=== PATIENT | female | born 1955 | race Caucasian/White ===

== ENCOUNTER 2024-07-04 18:56 | Inpatient (IN) | payer OTHER, SELFPAY ==
[2024-07-04] VITALS (28 sets, daily range): BP systolic 80–143; BP diastolic 37–119; BMI 30.8; BMI 32.3
[2024-07-04 15:43] LABS: Glucose - Point of Care 117 mg/dl (70-99)
--- NOTE | 2024-07-04 16:01 | ED.GENMED ---
Addendum entered and electronically signed by Fredis Lofton MD 07/04/24 17:57:
Patient came back from CT scan as the fluids were going patient is hypotensive again with systolic in the 90s. Given the renal failure we will discontinue the second liter of fluid. Will give that a rate of 150 with the bicarb. Will order
pressors as needed to keep maps above 65. Updated hospitalist of these changes.
Original Note:
History of Present Illness
General
Chief Complaint: Change in Mental Status
Time Seen by Provider: 07/04/24 15:49
History of Present Illness
History of Present Illness:
Patient is a 69-year-old woman with history of hypertension, hyperlipidemia presenting to the emergency department change in mental status. Per medics patient was found down. Initially reported that she was down for a few days. Patient unable to
provide much history. She states that nothing is bothering her.
Daughter is now at bedside provides all the history. She states that she does have history of TIA, hyperlipidemia. She is able to take care of herself on a usual basis and does live at home by herself. Patient saw her about 6 days ago in her
usual state of health. They did notice that she had been needing more assistance and they were in the works of getting an aide at the house. Daughter then talked to patient and everything was normal. She had coherence and there was nothing
different about her. Patient's daughter then went to visit her today when she found her sitting on the couch upright covered in urine and feces. Daughter did notice that she was slightly confused. Daughter does state that she has history of DENA
when she has been dehydrated but has never needed dialysis.
Past History
Past History
ED Past Medical History: HTN and Other (Stroke)
ED Past Surgical History: Cholecystectomy and Orthopedic
Social History
Tobacco: Non-smoker
Family History
Family History: Other (Reviewed and non-contributory)
Phy Exam
Physical Exam
Physical Exam:
GENERAL: disheveled, covered in feces
HEENT: normocephalic, extraocular movements intact, extremely dry oral mucosa
NECK: normal inspection
RESPIRATORY: no respiratory distress, clear to auscultation bilaterally
CARDIOVASCULAR: regular rate and rhythm
ABDOMEN/: soft, non-distended, diffusely tender to palpation, no rebound or guarding
EXTREMITIES: non-tender, no edema/swelling
NEUROLOGIC: awake and alert oriented x 2, 3 out of 5 strength in upper extremities, 1 out of 5 in bilateral lower extremities
SKIN: warm, significant excoriations under breast and in the groin. No purulent drainage
Sepsis
Sepsis Screening
Sepsis Assessment: Septic Shock
Sepsis Screening: Lactate >2mmol/L and Hypotension
Sepsis Screen
Sepsis Screen: Septic Shock
Date: 07/04/24
Time: 17:45
Course
Orders/Labs/Results
Orders:
Orders
07/04/24 15:40
EKG [Electrocardiogram (*1)] Urgent
Reason for Study: Shortness of Breath
EKG- Treatment ONCE
07/04/24 16:01
CT Abd/pelvis Wo Iv Cont Urgent
Reason For Exam: abdominal pain
CT Head W/o Iv Contrast Urgent
Comment:
Reason For Exam: ams
Lactated Ringers [Lr] 1,000 ml IV BOLUS
07/04/24 16:11
Ammonia Urgent
COVID-19 Antigen Urgent
Source: Nasal Swab
Complete Blood Count/With Diff Urgent
Comprehensive Metabolic Panel Urgent
Creatine Phosphokinase Urgent
Lactic Acid Urgent
NT-proBNP Urgent
UA Reflex to Culture [Urinalysis Reflex To Culture] Urgent
Date Specimen was Collected: 07/04/24
Time Specimen was Collected: 15:40
Urine Microscopic Reflex Cult Urgent
Influenza A+B Rapid Molecular Urgent
YONATAN Source: Nasal Swab
Specimen Description:
Date Specimen was Collected: 07/04/24
Time Specimen was Collected: 15:40
Urine Culture Urgent
YONATAN Source: U
Specimen Description:
Date Specimen was Collected: 07/04/24
Time Specimen was Collected: 15:40
07/04/24 16:29
Wound Culture [Wound/Abscess/Other Culture] Urgent
YONATAN Source: Decubitis Ulcer
Specimen Description:
Date Specimen was Collected: 07/04/24
Time Specimen was Collected: 16:21
07/04/24 16:30
Blood Culture Urgent
YONATAN Source: Blood/Venous
Specimen Description:
07/04/24 16:31
Blood Culture Urgent
YONATAN Source: Blood/Venous
Specimen Description:
Piperacillin/Tazo 4.5 Gram [Zosyn] 4.5 gram in 100 ml IV NOW
07/04/24 16:45
Blood Culture Q30M
YONATAN Source: Blood/Venous
Specimen Description:
07/04/24 17:04
Furosemide [Lasix] 40 mg IV NOW STA
Sodium Bicarbonate 50 meq IV NOW STA
07/04/24 17:15
Blood Culture Q30M
YONATAN Source: Blood/Venous
Specimen Description:
Lactated Ringers [Lr] 1,000 ml IV BOLUS
07/04/24 17:30
Dextrose 5%/Water 1000 ml [D5w] 1,000 ml Sodium Bicarbonate 150 meq IV 150 mls/hr
07/04/24 21:35
Potassium Urgent
Comment: draw 4 hours after furosemide administered
Abnormal Lab Results
07/04/24 07/04/24
15:36 16:11
WBC 24.5 H 10^3/uL
(4.8-10.8)
RDW 15.4 H %
(11.5-14.5)
MPV 11.9 H fL
(7.4-10.4)
Abs Immat Gran (auto) 1.2 H 10^3/uL
(0-0.05)
Absolute Neuts (auto) 19.4 H 10^3/uL
(1.4-6.5)
Absolute Lymphs (auto) 0.9 L 10^3/uL
(1.2-3.4)
Absolute Monos (auto) 2.7 H 10^3/uL
(0.1-0.6)
Immature Gran % 5.1 H %
(0-0.5)
Neutrophils % 79.3 H %
(42.2-75.2)
Lymphocytes % 3.7 L %
(20.5-51.1)
Monocytes % 10.9 H %
(1.7-9.3)
Potassium 5.9 H mmol/L
(3.5-5.1)
Carbon Dioxide 9 L* mmol/L
(22-30)
BUN 167 H* mg/dl
(7-17)
Creatinine 16.0 H* mg/dL
(0.6-1.0)
Glucose 117 H mg/dl
(70-99)
Lactic Acid 3.1 H mmol/L
(0.7-2.0)
Calcium 10.4 H mg/dl
(8.4-10.2)
Total Bilirubin 1.7 H mg/dl
(0.2-1.3)
AST 59 H U/L
(14-36)
ALT 36 H U/L
(0-35)
Alkaline Phosphatase 149 H U/L
(38-126)
Ammonia < 9 L umol/L
(9-30)
Creatine Kinase 954 H U/L
(30-135)
Urine Ketones 1+ A
(Negative)
Ur Occult Blood Reflex 2+ A
(Negative)
Urine Bilirubin 1+ A
(Negative)
Leukocyte Esterase Rfl 2+ A
(Negative)
Urine RBC 7-10 A /HPF
(0-2)
Urine WBC (Reflex) 26-30 A /HPF
(0-5)
Urine Bacteria (Reflex) Many A
(Negative)
Urine Albumin (Reflex) 1+ A
(Neg - Trace)
POC Glucose 117 H mg/dl
(70-99)
07/04/24 16:11
Vital Signs
Initial and Last Documented VS:
Initial Vital Signs
Resp
27
07/04/24 15:35
Last Documented Vital Signs
Temp Pulse Resp BP
98.5 F 85 24 105/46
07/04/24 15:43 07/04/24 17:00 07/04/24 17:00 07/04/24 17:00
MDM/Problems Addressed
Differential Diagnosis Includes:
69-year-old woman presenting to the emergency department change in mental status after she was found down. Vitals are notable for hypotension and exam does show significant excoriations and a woman who is ANO x 2. She is not any focal
neurodeficits. Will workup septic causes such as pneumonia urine electrolyte derangement. Will rule out traumatic injury such as a hemorrhage with CT head. Given the abdominal tenderness will obtain CT abdomen pelvis. At this time the groin
excoriations do not seem consistent with necrotizing soft tissue infection however will check lactate. Will give fluids for the hypotension with low threshold to initiate pressors. Will also give empiric antibiotics.
*Critical Care Note
Total Time (30-74mins, 75-104mins- exclusive of procedures): Not Applicable
Update Note
Update Note:
On reevaluation patient is very fluid responsive. Blood pressure is now 105/46. Her blood work is notable for leukocytosis. She is found to be in acute renal failure. It does appear to be prerenal. Her CO2 is 9. Her lactate is slightly
elevated. Her CK is also elevated. Potassium is slightly elevated. Urine does appear infected.
I did start hyperkalemia protocol. EKG per my interpretation without peaked T waves we will hold off calcium. I did discuss with nephrology who recommended continued fluid resuscitation with additional bolus and then starting bicarb drip at 150.
CT scan of the head per my interpretation with chronic infarcts. Per the official read she does have multiple old infarcts. CT scan of the abdomen without any acute findings.
Discussed with hospitalist who accepted patient to their service
ED Attending Note
-
Portions of this chart may have been created with voice recognition software.� Occasional wrong word or��sound alike� substitutions may have occurred due to the inherent limitations of voice recognition software.
Discharge Plan
Departure
Patient Disposition: Home (Routine Discharge)
Date of Disposition: 07/04/24
Time of Disposition: 17:41
Patient with high blood pressure during this ER visit?: No
Discharge Problem:
Acute renal failure
Prescriptions:
No Action
aspirin 81 mg Tablet,Delayed Release (Dr/Ec)
81 mg PO DAILY
lisinopril-hydrochlorothiazide 20-12.5 mg Tablet
1 tab PO BID
Referrals:
Arsh Gibbons MD [Family Provider] -
Interventions
Interventions:
*Risk Screen - Suicide Last Done: 07/04/24 15:43
*General Assessment Last Done: 07/04/24 15:43
*Neglect/Abuse Screening Last Done: 07/04/24 15:43
ED- Fall Risk Assessment Last Done: 07/04/24 16:25
*ED COVID-19 Vaccine History Last Done: 07/04/24 15:43
ED- Pulmonary Assessment Last Done: 07/04/24 16:25
ED-Psychological Assessment Last Done: 07/04/24 17:00
ED- Neurological Assessment Last Done: 07/04/24 16:25
ED- Cardiac Assessment Last Done: 07/04/24 16:25
ED Swallowing Screen Last Done: 07/04/24 16:25
Discharge Date and Time
Print Language: VIETNAMESE
--- NOTE | 2024-07-04 16:06 | WOUNDNOTE ---
WOUND/SKIN CARE NOTE: Pt identified by name and .
Lower abd and groin
Bilateral medial upper thighs
Under L breast
Buttucks and upper posterior thighs
as above
[2024-07-04 16:20] LABS: Urine Albumin 1+ (Neg - Trace); Urine Bilirubin 1+ (Negative); Urine Character Very Cloudy (Clear); Urine Color Yellow; Urine Glucose Negative (Negative); Urine Ketone 1+ (Negative); Urine Leukocyte 2+ (Negative); Urine Nitrite Negative (Negative); Urine Occult Blood 2+ (Negative); Urine Urobilinogen 1+ (Neg - 1+)
[2024-07-04] MEDS: LR 1000 IV ×2 (16:24→17:40)
[2024-07-04 16:27] LABS: Urine Squamous Cell 0-2 /LPF (Few)
[2024-07-04 16:29] LABS: Urine Bacteria Many (Negative); Urine White Cell 26-30 /HPF (0-5)
[2024-07-04 16:31] LABS: Ammonia < 9 umol/L (9-30)
[2024-07-04 16:34] LABS: ALT (SGPT) 36 U/L (0-35); AST (SGOT) 59 U/L (14-36); Albumin 3.6 g/dl (3.5-5.0); Alkaline Phosphatase 149 U/L (38-126); COVID-19 Antigen Negative (Negative); Calcium 10.4 mg/dl (8.4-10.2); Carbon Dioxide 9 mmol/L (22-30); Chloride 105 mmol/L (98-107); Creatine Phosphokinase 954 U/L (30-135); Glucose 117 mg/dl (70-99); Lactic Acid 3.1 mmol/L (0.7-2.0); Potassium 5.9 mmol/L (3.5-5.1); Sodium 144 mmol/L (135-145); Total Bilirubin 1.7 mg/dl (0.2-1.3)
[2024-07-04 16:40] LABS: NT-proBNP 7420 pg/ml
[2024-07-04 16:48] LABS: Blood Urea Nitrogen 167 mg/dl (7-17); Estimated Creatinine Clearance 4 ml/min; eGFR 2.18
[2024-07-04 17:00] LABS: % Basophils 0.1 % (0-2); % Eosinophils 0.9 % (0-6); % Immature Granulocytes 5.1 % (0-0.5); % Lymphocytes 3.7 % (20.5-51.1); % Monocytes 10.9 % (1.7-9.3); % Neutrophils 79.3 % (42.2-75.2); Absolute Eosinophils 0.2 10^3/uL (0-0.7); Absolute Immature Granulocytes 1.2 10^3/uL (0-0.05); Absolute Lymphocytes 0.9 10^3/uL (1.2-3.4); Absolute Monocytes 2.7 10^3/uL (0.1-0.6); Absolute Neutrophils 19.4 10^3/uL (1.4-6.5); Hematocrit 43.1 % (37.0-47.0); Hemoglobin 14.6 g/dL (12.0-16.0); Mean Corp Hgb Conc. 33.9 g/dL (33.0-37.0); Mean Corpuscular Volume 88.5 fL (81.0-99.0); Mean Platelet Volume 11.9 fL (7.4-10.4); Nucleated Red Blood Cells % 0.1 %; Platelet Count 397 10^3/uL (130-400); Red Blood Cell Count 4.87 10^6/uL (4.20-5.40); Red Cell Dist. Width 15.4 % (11.5-14.5); White Blood Cell Count 24.5 10^3/uL (4.8-10.8)
[2024-07-04] MEDS: LASIX 40 MG IV (17:41)
[2024-07-04] MEDS: SODIUM BICARBONATE 50 MEQ IV ×2 (17:41→23:00)
[2024-07-04] MEDS: ZOSYN 100 IV (17:46)
--- NOTE | 2024-07-04 17:46 | HPS.HSE ---
Family Physician
-
Family Physician: Arsh Gibbons
Chief Complaint
-
Weakness
History of Present Illness
Patient is a 69-year-old female past medical history of hypertension and prior stroke who presents with weakness. Patient herself is unable to provide much additional history. Patient was last seen by her family 6 days ago. Patient's daughter
spoke to patient 2 days ago and she sounded fine on the phone. This morning daughter tried to call her today and patient did not answer. Patient's daughter went to visit her today and found her sitting on the couch covered in urine and feces. It
is unclear how long she had been on the couch. Daughter believes patient has only had a few cans of seltzer since Friday when the daughter delivered the groceries.
Patient's daughter reports patient has had a notable decline since at least May, possibly longer. Family recently contacted [facility] to get her mom additional services in the home.
Medical History
Past Medical History
Past Medical History: Reports Other
Additional Past Medical History:
Right Parietal Lobe Stroke
Essential Hypertension
Past Surgical History: Reports Other
Additional Past Surgical History:
Cholecystectomy
Bilateral Total Knee Replacement
Social History
Tobacco: Non-smoker
Alcohol: None
Living: Alone
Family History
Family History: Other (Mother: Breast Cancer; Father: CVA)
Allergies / Home Medications
Allergies reflects when Allergies were last updated in [facility].
Home Medications with original date entered in [facility]
Allergy/Medication List:
Allergies
Allergy/AdvReac Type Severity Reaction Status Date / Time
No Known Allergies Allergy Verified 07/04/24 16:29
Home Medications
aspirin 81 mg tablet,delayed release 81 mg PO DAILY Blood clot prevention/tx 08/21/22
lisinopril 20 mg-hydrochlorothiazide 12.5 mg tablet 1 tab PO BID 07/04/24
Review of Systems
-
Unable to obtain full review of systems at this time due to: Acuity
Physical Exam
Vital Signs
Vital Signs
Temp Pulse Resp BP
98.5 F 85 24 105/46
07/04/24 15:43 07/04/24 17:00 07/04/24 17:00 07/04/24 17:00
Physical Exam
General: Well Developed and Well Nourished
HEENT: Anicteric and Other (Mucous membranes are very dry)
Respiratory: Clear and Non Labored Respirations
Cardiac: S1/S2 and Regular Rhythm
GI: Soft and Non Tender
Musculoskeletal: No Clubbing and No Cyanosis
Skin: Warm and Dry
Neuro: Awake, Alert, Oriented (Patient correctly states she is at [facility]; She reports the date as May 2024) and Other (Speech is slow but clear; 3/5 Strength Upper Ext; 1/5 Strength Lower Ext)
Psych: Calm
Laboratory Results
-
07/04/24 16:11
Laboratory Results
Lactic Acid 3.1 mmol/L (0.7-2.0) H 07/04/24 16:11
Total Bilirubin 1.7 mg/dl (0.2-1.3) H 07/04/24 16:11
AST 59 U/L (14-36) H 07/04/24 16:11
ALT 36 U/L (0-35) H 07/04/24 16:11
Alkaline Phosphatase 149 U/L (38-126) H 07/04/24 16:11
Data Reviewed
-
CT Scan: Report Reviewed by me
Lab Data: Labs Reviewed by me
Impression/Plan
-
Severe Sepsis secondary to Urinary Tract Infection
Acute Kidney Injury, suspect multi-factorial in setting of sepsis, rhabdomyolysis and poor oral intake
Abnormal LFTs, possible shock liver in setting of sepsis vs rhabdomyolysis vs other
Hyperkalemia
Severe Metabolic Acidosis
Lactic Acidosis
Rhabdomyolysis
-Admit to IMU for close monitoring and potential need for pressors
-Check blood cultures
-Check CXR
-Continue Ceftriaxone for UTI
-Continue IVFs with Bicarb
-Consult Nephrology
Skin Breakdown involving breast, abdomen and groin folds
-Consult Wound Care
Tachy-Boogie Syndrome s/p Permanent Pacemaker
-Stable
Hx Right Parietal Stroke
-Continue aspirin
DVT proph: SC Heparin
Code Status: Full Code
[2024-07-04 18:13] LABS: Urine Sodium 63 mmol/L (30-90)
[2024-07-04 18:27] LABS: Body Fluid for Eosinophils No Eosinophils seen
--- NOTE | 2024-07-04 18:50 | PTCARENOTE ---
attempted R midline without success. unable to thread wire past 6cm x2 attempts, offered to attempt midline placement L side but d/t needs and time constraints (for off going md), ED md to place central line for patient
[2024-07-04] MEDS: SODIUM BICARBONATE 1150 MEQ IV (19:13)
--- NOTE | 2024-07-04 19:57 | EDRN ---
Report given to Deb in ICU
--- NOTE | 2024-07-04 20:06 | W.PN.UPDATE ---
Update Note
Progress Note Update
Attending update
I saw the patient independently
69-year-old woman with past medical history of hypertension and prior stroke who presents with weakness. Patient unable to provide additional history. She was last seen by her family 6 days ago. Patient was found sitting on the couch covered in
urine and feces. It is unclear how long she had been on the couch. Severe skin excoriation on groin folds and under breasts.
Past Medical History
Right Parietal Lobe Stroke
Essential Hypertension
Cholecystectomy
Bilateral Total Knee Replacement
Physical Exam
General: Well Developed
HEENT: Mucous membranes are very dry
Respiratory: Clear and Non Labored Respirations (front exam)
Cardiac: S1/S2 and Regular Rhythm
GI: Soft and Non Tender
Neuro: Awake, Alert, Oriented (Patient correctly states she is at [facility];
She reports the date as May 2024)
(Speech is slow but clear; 3/5 Strength Upper Ext; 1/5 Strength Lower Ext)
Psych: Calm
Skin Red, excoriated skin folds on groin and under breasts
Impression/Plan
1. Severe Sepsis, likely secondary to Urinary Tract Infection but complicated by:
Acute Kidney Injury, (suspect multi-factorial in setting of sepsis),
rhabdomyolysis
poor oral intake
Abnormal LFTs, (possible shock liver in setting of sepsis vs rhabdomyolysis)
Hyperkalemia
Severe Metabolic Acidosis
Lactic Acidosis
Rhabdomyolysis
Plan is to Admit to IMU for close monitoring and potential need for pressors, with IVF ressusitation
blood cultures
CXR
Ceftriaxone (but received zosyn in ED)
IVFs with Bicarb
Consult Nephrology
Please see PA note for full detail about
Skin Breakdown involving breast, abdomen and groin folds
Tachy-Boogie Syndrome s/p Permanent Pacemaker
Hx Right Parietal Stroke
DVT proph: SC Heparin
Code Status: Full Code
--- NOTE | 2024-07-04 20:30 | PTCARENOTE ---
Addendum entered by Deb Garces RN 07/05/24 03:09:
Patient incontinent of large amount of dark watery/liquid diarrhea. Nasal trumpet inserted per rectum, to drainage bag.
Original Note:
Patient received from the ED via stretcher accompanied by RN. Transferred and admitted to ICU bed 3364 as IMU patient. She is awake and alert. PEREIRA. She is oriented to person and place. Forgetful. Speech is slightly slurred and garbled at times. BBS
clear. S1S2 irregular and tachy. BLE edema 1+ with palpable pulses. Perineum, Sacrum, Bilateral medial buttocks, bilateral groin under abdominal fold, under left breast, labia and pubic region all noted to be extremely excoriated with MASD. Skin is
friable with some bleeding noted. Bilateral medial buttocks and sacrum noted with slough, a couple of areas at groin and perineum appear necrotic. Skin care given and zinc oxide applied to areas. Khoury catheter in place patent draining cloudy yellow
urine. Khoury care rendered. Patient turned every 2 hours.
--- NOTE | 2024-07-04 21:45 | PTCARENOTE ---
Noted that patient EKG in the ED was SR. Now appears to be in Afib with RVR with HR 120-140s. EKG performed. ML Arthur notified. Labs drawn. Cardiology consulted. New IV site inserted left wrist #[id number].
[2024-07-04 22:30] LABS: Calcium 9.8 mg/dl (8.4-10.2); Carbon Dioxide 13 mmol/L (22-30); Chloride 103 mmol/L (98-107); Estimated Creatinine Clearance 4 ml/min; Glucose 120 mg/dl (70-99); Magnesium 2.5 mg/dl (1.6-2.3); Potassium 4.8 mmol/L (3.5-5.1); Sodium 143 mmol/L (135-145); eGFR 2.69
[2024-07-04 22:34] LABS: Blood Urea Nitrogen 159 mg/dl (7-17)
[2024-07-04] MEDS: STERILE WATER FOR INJECTION 10 ML IV (23:00)
[2024-07-04] MEDS: ROCEPHIN 1000 MG IV (23:00)
[2024-07-04] MEDS: HEPARIN 25000 UNITS/250 ML IV (23:30)
--- NOTE | 2024-07-04 23:30 | PTCARENOTE ---
Addendum entered by Deb Garces RN 07/05/24 03:08:
one amp of HCO3 also given per order.
Original Note:
PTT noted at 24.6. Heparin gtt started per order. Next PTT at 0600
[2024-07-04 23:51] LABS: Hematocrit 38.2 % (37.0-47.0); Hemoglobin 13.4 g/dL (12.0-16.0); Mean Corp Hgb Conc. 35.1 g/dL (33.0-37.0); Mean Corpuscular Hgb 30.2 pg (27.0-31.0); Mean Corpuscular Volume 86.2 fL (81.0-99.0); Platelet Count 320 10^3/uL (130-400); Red Blood Cell Count 4.43 10^6/uL (4.20-5.40); Red Cell Dist. Width 14.7 % (11.5-14.5)
[2024-07-05] VITALS (55 sets, daily range): BP systolic 63–134; BP diastolic 41–97; BMI 32.3
[2024-07-05] LABS: APTT 24.6 Sec (23.4-35.0)
[2024-07-05] MEDS: LOPRESSOR 2.5 MG IV (01:12)
[2024-07-05 02:41] LABS: Hematocrit 37.2 % (37.0-47.0); Hemoglobin 13.3 g/dL (12.0-16.0)
[2024-07-05 03:09] LABS: Lactic Acid 2.3 mmol/L (0.7-2.0)
[2024-07-05 03:18] LABS: Calcium 8.9 mg/dl (8.4-10.2); Carbon Dioxide 21 mmol/L (22-30); Chloride 103 mmol/L (98-107); Estimated Creatinine Clearance 5 ml/min; Glucose 126 mg/dl (70-99); Magnesium 2.1 mg/dl (1.6-2.3); Potassium 4.1 mmol/L (3.5-5.1); Sodium 145 mmol/L (135-145); eGFR 3.23
[2024-07-05] MEDS: SODIUM BICARBONATE 1150 MEQ IV (03:24)
[2024-07-05 03:28] LABS: Blood Urea Nitrogen 164 mg/dl (7-17)
--- NOTE | 2024-07-05 03:47 | W.PN.UPDATE ---
Update Note
Progress Note Update
-Reported by the nursing staff that the patient`s hr 120-140s, bp 91/55. EKG shows A-fib which is new. Patient was able to answer simple question during exam.On RA, denies SOB or chest pain.
-Cardiology consult placed.
-Levophed ordered earlier in ER, but not started as the bp improved.
-Currently bp is soft will give small dose IV Lopressor 2.5 mg and will re order Levophed if needed for hypotension.
-Heparin drip ordered by admitting team.
[2024-07-05 06:43] LABS: Hematocrit 37.5 % (37.0-47.0); Hemoglobin 13.6 g/dL (12.0-16.0); Mean Corp Hgb Conc. 36.3 g/dL (33.0-37.0); Mean Corpuscular Hgb 30.7 pg (27.0-31.0); Mean Corpuscular Volume 84.7 fL (81.0-99.0); Mean Platelet Volume 12.2 fL (7.4-10.4); Platelet Count 316 10^3/uL (130-400); Red Blood Cell Count 4.43 10^6/uL (4.20-5.40); Red Cell Dist. Width 14.1 % (11.5-14.5); White Blood Cell Count 21.4 10^3/uL (4.8-10.8)
[2024-07-05 06:53] LABS: APTT 43.4 Sec (23.4-35.0)
[2024-07-05 07:18] LABS: ALT (SGPT) 30 U/L (0-35); AST (SGOT) 66 U/L (14-36); Albumin 2.5 g/dl (3.5-5.0); Alkaline Phosphatase 116 U/L (38-126); Calcium 8.9 mg/dl (8.4-10.2); Carbon Dioxide 26 mmol/L (22-30); Chloride 100 mmol/L (98-107); Creatine Phosphokinase 814 U/L (30-135); Estimated Creatinine Clearance 5 ml/min; Glucose 132 mg/dl (70-99); Potassium 3.9 mmol/L (3.5-5.1); Sodium 144 mmol/L (135-145); Total Bilirubin 0.9 mg/dl (0.2-1.3); Total Protein 5.3 g/dl (6.3-8.2); eGFR 3.65
[2024-07-05 07:28] LABS: Blood Urea Nitrogen 163 mg/dl (7-17)
--- NOTE | 2024-07-05 07:34 | PTCARENOTE ---
Report given verbally to RN assuming careSudheer. Questions answered.
--- NOTE | 2024-07-05 07:42 | W.PN.HOSP.TC ---
Today's Communication/Plan
-
see plan
Assessment / Plan
Assessment / Plan
69-year-old woman with past medical history of hypertension and prior stroke who presents with weakness. Patient unable to provide additional history. She was last seen by her family 6 days ago. Patient was found sitting on the couch covered in
urine and feces. It is unclear how long she had been on the couch. Severe skin excoriation on groin folds and under breasts.
Abdomen/Pelvis CT
IMPRESSION:
1). There is no evidence of acute pathology
2). 2 cm right adrenal adenoma
3). Cholecystectomy
4). Multilevel lumbar degenerative disc disease
HEAD CT
IMPRESSION:
There are no acute intracranial abnormalities.
There is old a 3.5 cm cm right parietal white matter infarct
There is old 3 cm right frontal convexity infarct
There is old 3 mm lacunar infarct in the anterior aspect of the right thalamus
There is mild diffuse cortical atrophy with mild nonspecific white matter changes as described above.
CXR
IMPRESSION:
No active cardiopulmonary disease.
Acute Renal Failure
Hyperkalemia
Rhabdomyolysis
-creatinine 16 on admission with BUN 167, K+ 5.9
-case discussed with Nephrology by ER attending
-receiving D5 sodium bicarb @ 150cc/hr with improvement in creatinine down to 10.4 5his morning
-CK has improved from 954 to 814
-continue sodium bicarb
Transaminitis in setting of sepsis/dehydration
-resolved this AM with mildly elevated AST related to muscle
Severe Sepsis
Lactic Acidosis
-flu and covid negative
-lactate resolving, will continue to trend
-continue IV Ceftriaxone
-F/U cultures
Diarrhea
-send C. Diff and norovirus
Skin Breakdown involving breast, abdomen and groin folds
-Consult Wound Care
Tachy-Boogie Syndrome s/p Permanent Pacemaker
Atrial Fibrillation with RVR
-s/p 1 dose IV metop
-patient tachy to 120's - follow up response to small fluid bolus
-cardiology consulted
-IV heparin gtt
Hx Right Parietal Stroke
-Continue aspirin
DVT proph: SC Heparin
Code Status: Full Code
Total Critical Care Time 45 minutes. I was immediately available to the patient and staff. I personally examined, reviewed labs, diagnostic images/reports, interpretations, treatment plans, discussed patient care with other providers and family
or caregivers (if patient is unable to make decisions), entered orders as appropriate and documented the medical record.
Anticipated Discharge: > 48 hours
Subjective/Interval History
-
Date of Service: July 05, 2024
loose stools overnight
denies pain
states she remembers being on her cough but couldn't get up
Objective Data
-
Labs:
Laboratory Results
07/04/24 07/04/24 07/05/24
22:07 23:39 02:26
WBC 23.0 H
Hgb 13.4 13.3
Hct 38.2 37.2
Plt Count 320
APTT 24.6
Sodium 143 145
Potassium 4.8 4.1
Chloride 103 103
Carbon Dioxide 13 L* 21 L
BUN 159 H* 164 H*
Creatinine 13.4 H* 11.5 H*
Glucose 120 H 126 H
Calcium 9.8 8.9
Total Bilirubin
AST
ALT
Alkaline Phosphatase
07/05/24
06:33
WBC 21.4 H
Hgb 13.6
Hct 37.5
Plt Count 316
APTT 43.4 H
Sodium 144
Potassium 3.9
Chloride 100
Carbon Dioxide 26
BUN 163 H*
Creatinine 10.4 H*
Glucose 132 H
Calcium 8.9
Total Bilirubin 0.9
AST 66 H
ALT 30
Alkaline Phosphatase 116
Vital Signs:
Vital Signs
Temp Pulse Resp BP Pulse Ox
98.7 F 113 20 98/53 96
07/05/24 07:02 07/05/24 07:30 07/05/24 07:30 07/05/24 07:30 07/05/24 07:30
I&O
07/04/24 07/05/24 07/06/24
06:59 06:59 06:59
Intake Total 1668.8 / 1668.8
Output Total 1620 / 1620
Balance 48.8 / 48.8
Review of Systems
-
History Source: Patient
All other systems: Reviewed and negative
Physical Exam
-
General: No Apparent Distress
HEENT: PERRLA
Respiratory: Clear to Auscultation; Negative Wheezes
Cardiac: Irregular Rhythm and Tachycardic
GI: Soft and Nontender
Skin: Warm and Dry; Negative Rash
Neuro: Awake, Alert, Oriented and Other (moves all extremities, follows commands, ISAAK, EOMI, no facial asymmetry, bilateral pronator drift? (chronic?); can wiggle toes and following commands )
Psych: Confused
Data Reviewed
-
Diagnostic Radiology: Report Reviewed by me
Labs: Labs Reviewed by me
--- NOTE | 2024-07-05 08:26 | CON.CAR ---
Addendum entered and electronically signed by Jason Severino MD 07/05/24 13:35:
69 yo female with PMH of non-obstructive CAD, HTN, tachy/claire s/p PPM, prior CVA is admitted after being found down at home. She is being treated for septic shock/UTI. Acute renal failure was present on admission. We are consulted for new A fib
with RVR. She does not feel palps. Exam with tachy, irregular rhythm, no murmurs. Cr is over 10. Tele: A fib, avg HR 110s.
New A fib with RVR. Trend rates as she is weaned from levophed. We will eventually add Toprol XL. CHADS2-VASC = 6. Heparin for now for OAC. Eventual transition to eliquis.
Original Note:
Consultation
Consultation Request
Date/Time Consultation Requested: 07/04/2024 22:30
Date/Time Consultation Performed: 07/05/2024 08:30
Requesting Provider: Dr. Arthur
Performing Provider: NELLY Sims for Dr. Severino
Reason for Consultation: New atrial fibrillation with rapid ventricular response
Medical History
-
Chief Complaint: Weakness
History of Present Illness:
Janet Dexter is a 69-year-old female (known to Dr. Womack, her primary research hydraulic engineer), nonobstructive coronary artery disease, hypertension, hyperlipidemia, chronic kidney disease, tachybradycardia syndrome status post pacemaker (Medtronic), and
prior CVA presented with weakness and change in mental status. She was found to be confused by her family. She was covered in urine and feces. She was last seen by her family 5 to 7 days prior to arrival to the emergency department. She was
admitted with sepsis and DENA. Cardiology was consulted for atrial fibrillation with rapid ventricular response. Her remote monitoring is disconnected. She had approximately 2 hours of atrial fibrillation yesterday and current episode has been in
progress and 09:19 today. Bedside Medtronic [facility] performed by me. She is confused and unable to participate in this consultation.
Past Medical History
Past Medical History: Arrhythmias (NSVT), CAD (Nonobstructive), CVA, HTN, Hypercholesterolemia and Renal Failure (CKD3a)
Past Surgical History: Cholecystectomy and Orthopedic
Social History
Tobacco: Non-Smoker
Alcohol: None
Drug: None
Living: Alone
Family History
Family History: Unable to Obtain
Allergies / Home Medications
Allergy/AdvReac Type Severity Reaction Status Date / Time
No Known Allergies Allergy Verified 07/04/24 16:29
�Medication �Instructions �Recorded �Confirmed �Type
aspirin 81 mg tablet,delayed 81 mg PO DAILY Blood clot 08/21/22 07/04/24 History
release prevention/tx
lisinopril 20 1 tab PO BID 07/04/24 07/04/24 History
mg-hydrochlorothiazide 12.5 mg
tablet
Review of Systems
-
Unable to obtain full review of systems at this time due to: Other (Confused)
Physical Exam
Vital Signs
Temp Pulse Resp BP Pulse Ox
98.7 F 113 20 98/53 96
07/05/24 07:02 07/05/24 07:30 07/05/24 07:30 07/05/24 07:30 07/05/24 07:30
Lab Results
07/05/24 06:33
07/05/24 06:33
Dos-K-Bzcfmvdykct Pept 7420 pg/ml 07/04/24 16:11
Physical Exam
General: Well Developed, No Apparent Distress and Comfortable
HEENT: Normocephalic, Anicteric and Moist Mucous Membranes
Respiratory: Clear and Non Labored Respirations
Cardiac: S1/S2, Irregular Rhythm and Peripheral Edema
Breast: Deferred by me
GI: Soft, Non Tender, Non Distended and Normal Bowel Sounds
Rectal: Deferred by Provider
Genito-urinary: No Costovertebral Tender
Musculoskeletal: No Clubbing and No Cyanosis
Skin: Warm and Dry
Neuro: Awake and Alert (Spontaneously opening eyes)
Hematologic/Lymphatic: No Lymphadenopathy
Psych: Calm and Confused
Impression / Plan
-
IMPRESSION/PLAN: 69F with nonobstructive coronary artery disease, hypertension, hype per lipidemia, chronic kidney disease, tachybradycardia syndrome status post pacemaker (Medtronic), and prior CVA presented with weakness and change in mental
status. She was admitted with sepsis and DENA. Cardiology was consulted for atrial fibrillation with rapid ventricular response.
Primary Bag Bundler: Dr. Womack
Septic shock, in the setting of UTI
-Hypotension, leukocytosis, lactic acidosis, DENA
-Lactic acidosis slowly improving, CK improving
-C Diff and Norovirus negative (she has diarrhea)
-Blood cultures are pending
DENA on CKD3a
-Improving, nephrology following
Atrial fibrillation with rapid ventricular response
-Rates are fast, limited given hypotension,
-Oral Anticoagulation: On heparin drip, eventual transition to apixaban 5 mg twice daily, aspirin can be discontinued
-[id number]: score at least 6 (HTN, prior Stroke/TIA, Vascular disease, age 65-74, female gender)
Hyperkalemia, in the setting of DENA, nephrology follow
Tachybradycardia syndrome status post Medtronic PPM (10/2022), bedside CareLink performed
Hypertension, now hypotensive
-Slowly weaning Levophed
Dyslipidemia, given her prior CVA and nonobstructive CAD, statin is recommended, initiate after status improves
Nonobstructive coronary artery disease, stable without chest pain
Prior right parietal stroke
Data Reviewed
-
EKG: Report Reviewed by me (Atrial fibrillation with right ventricular response, rate 125 )
Labs: Labs Reviewed by me
Old Records: Reviewed
Critical Care Time (in minutes): [phone]
[2024-07-05 08:28] LABS: Phosphorus 4.6 mg/dl (2.5-4.5)
[2024-07-05] MEDS: NSS 500 IV (08:29)
[2024-07-05] MEDS: ASPIR LOW (ENTERIC COATED) 81 MG PO (08:32)
--- NOTE | 2024-07-05 09:30 | W.CON.NEPH ---
Consultation
-
Date/Time Consultation Requested: July 05, 2024 7 AM
Date/Time Consultation Performed: July 05, 2024 at 9:30 AM
Requesting Provider: Dr. Anderson
Performing Provider: Dr. Ahmadi
Reason for Consultation: DENA
Medical History
-
Chief Complaint: Weakness
History of Present Illness:
This is a 69-year-old female who lives alone who has hypertension on a multidrug regimen as well as history of stroke on aspirin therapy alone. It does not appear that she takes any other medications for other significant medical issues. She was
last seen by her family about 6 days prior to admission and then the family had spoken to on the phone about 2 days prior to admission. On the day of admission the family did not receive an answer on the phone and so went to visit her and found her
sitting on the couch in her urine and feces. She was then brought to the emergency room. She was noted to be in significant acute kidney injury with a creatinine of 16 and BUN over 160. She also has significant metabolic acidosis and
hyperkalemia. She was at the ICU given hypotension and pressor therapy requirements. She is currently critically ill.
Past Medical History
Right Parietal Lobe Stroke
Essential Hypertension
Cholecystectomy
Bilateral Total Knee Replacement
Social History
Tobacco: Non-Smoker
Alcohol: None
Family History
Family History: Not Pertinent
Allergies / Home Medications
Allergy/AdvReac Type Severity Reaction Status Date / Time
No Known Allergies Allergy Verified 07/04/24 16:29
�Medication �Instructions �Recorded �Confirmed �Type
aspirin 81 mg tablet,delayed 81 mg PO DAILY Blood clot 08/21/22 07/04/24 History
release prevention/tx
lisinopril 20 1 tab PO BID 07/04/24 07/04/24 History
mg-hydrochlorothiazide 12.5 mg
tablet
Review of Systems
-
No chest pain, shortness of breath, pain. She is thirsty and hungry
All other systems: Negative unless noted
Physical Exam
Vital Signs
Vital Signs
Temp Pulse Resp BP Pulse Ox
98.7 F 118 19 125/57 96
07/05/24 07:02 07/05/24 09:00 07/05/24 09:00 07/05/24 09:00 07/05/24 09:07
Lab Results
WBC 21.4 10^3/uL (4.8-10.8) H 07/05/24 06:33
RBC 4.43 10^6/uL (4.20-5.40) 07/05/24 06:33
Hgb 13.6 g/dL (12.0-16.0) 07/05/24 06:33
Hct 37.5 % (37.0-47.0) 07/05/24 06:33
Plt Count 316 10^3/uL (130-400) 07/05/24 06:33
Sodium 144 mmol/L (135-145) 07/05/24 06:33
Potassium 3.9 mmol/L (3.5-5.1) 07/05/24 06:33
Chloride 100 mmol/L (98-107) 07/05/24 06:33
Carbon Dioxide 26 mmol/L (22-30) 07/05/24 06:33
BUN 163 mg/dl (7-17) H* 07/05/24 06:33
Creatinine 10.4 mg/dL (0.6-1.0) H* 07/05/24 06:33
eGFR 3.65 07/05/24 06:33
Glucose 132 mg/dl (70-99) H 07/05/24 06:33
Calcium 8.9 mg/dl (8.4-10.2) 07/05/24 06:33
Phosphorus 4.6 mg/dl (2.5-4.5) H 07/05/24 02:26
Fvr-Z-Blptjzvvzzp Pept 7420 pg/ml 07/04/24 16:11
Albumin 2.5 g/dl (3.5-5.0) L 07/05/24 06:33
CT abdomen and pelvis without contrast on July 04, 2024
IMPRESSION:
1). There is no evidence of acute pathology
2). 2 cm right adrenal adenoma
3). Cholecystectomy
4). Multilevel lumbar degenerative disc disease
Physical Exam
Patient is awake alert oriented and in no distress. Mood and affect were pleasant, insight and judgment were good. Pupils are equal round and reactive to light, extraocular movements are intact, sclera were anicteric. Hearing was normal, ears and
nose are intact. Oropharynx was clear and slightly dry. Neck was supple with trachea midline and no thyromegaly. Heart was regular rate and rhythm without rubs. Lower extremities without edema. Lungs were clear to auscultation bilaterally and with
normal excursion. Abdomen was soft, nontender, with normal active bowel sounds, and no hepatosplenomegaly. Skin was without rash and with normal turgor.
Data Reviewed
-
Radiology: Image Personally Visualized and interpreted (Chest x-ray on July 04, 2024 by my reading shows no acute disease)
CT Scan: Report Reviewed by me
Medical Tests (Nuc Med, Echo etc): Image Personally Visualized and interpreted (EKG on July 04, 2024 by reading shows atrial fibrillation rapid ventricular rate, inferior lateral ST T wave abnormalities)
Labs: Labs Reviewed by me
Old Records: Reviewed
Assessment/Plan
-
Assessment
DENA
Hyperkalemia
Metabolic acidosis
Azotemia
Lactic acidosis
Hypotension
Atrial fibrillation
Mental status change
History of stroke
Elevated LFTs
Elevated CPK
Plan
Continue IV fluids, switch to saline
Maintain Khoury catheter for now
Serial BMP
No emergent needs for dialysis
Cardiology evaluation for atrial fibrillation
Follow lactic acid level
Empiric antibiotics per primary team
Wean Levophed
Critical care time spent 40 minutes
[2024-07-05 11:04] LABS: Lactic Acid 1.6 mmol/L (0.7-2.0)
[2024-07-05] MEDS: NSS 1000 IV ×2 (11:20→21:13)
[2024-07-05] MEDS: OFIRMEV 100 IV (11:21)
--- NOTE | 2024-07-05 12:37 | CM ---
CM following re: discharge planning.
Reviewed pt's chart, met with pt and pt's daughter Asmita at bedside.
Pt is a 69 year old female, admitted with primary dx of Acute Renal Failure.
Per daughter Asmita, pt lives alone in an apartment 3d floor, 3FF to enter, has 3 supportive children. Per daughter, pt was independent with functional ability till a month ago when pt experienced difficulties with walking. Pt's daughter stated that
pt has been assessed by [facility] for waiver program last week and now is in a process to check pt's financing and eligibility for Medicaid. Pt's daughter stated she feels that her mother will need top go to a SNF for a short term rehab and
pt's daughter brought limited optimism regarding pt's ability to continue living alone even with some caregiver services. Per daughter senior care care might be an options.
A list of SNFs with a buttermaker continuous churn care options provided to pt and her daughter.
AD information provided
Eliquis 5mg BID riojas checked with t's pharmacy- $272.00 for 30 days supply. pt's daughter stated that pt is on limited income and will not afford. MD is aware. Pt's daughter stated she will look into finding pt's prescription plan to figure out
whether or not pt's has deductible cap.
PT and OT will evaluate the pt to determine a level of care at discharge.
PCP: Arsh Gibbons
Pharmacy: [facility]
D/C plan: most likely SNF for a short term rehab and a possibility for a buttermaker continuous churn care. PT and OT to confirm.
CM will follow with discharge plan updates as hospitalization progresses
--- NOTE | 2024-07-05 13:01 | PTCARENOTE ---
Updates thru am with nephrology, repeat labs as ordered, repeat lactic trend now 1.5. Ivf and changes with hospitalist team thru shift. Continue ongoing assessment trends, viatl sign trends and drip titration. Cardiology team, medtronics teams
update with patient cardiac rhythm. Discuss recent and ongoing compliant issues with family/daughter at bedside. Daughter expressing concerns with patient care, ability to provide cares, and difficulty with patient refusal of cares. Continue
supportive cares, emotional support and teaching as needed thru shift. Wound care team in ICU prepping for overall assessment skin/wound updates and recommendations. Supportive cares ongoing.
[2024-07-05] MEDS: DILAUDID 0.25 MG IV (13:27)
--- NOTE | 2024-07-05 13:59 | WOUNDNOTE ---
PERINEUM/GROIN AND ABDOMINAL SKIN FOLDS
--- NOTE | 2024-07-05 13:59 | WOUNDNOTE ---
R GROIN AND THIGH
--- NOTE | 2024-07-05 14:00 | WOUNDNOTE ---
L GROIN/THIGH AND ANTERIOR PUBIC AREA
--- NOTE | 2024-07-05 14:03 | WOUNDNOTE ---
GLUTEAL CLEFT/BUTTOCKS AND ISCHIUM
--- NOTE | 2024-07-05 14:04 | WOUNDNOTE ---
HEELS AND R LATERAL ANKLE/FOOT
--- NOTE | 2024-07-05 14:05 | WOUNDNOTE ---
WON RN note: Patient admitted with acute renal failure and sepsis.
See H&P for complete history. Lives alone, daughter nearby.
PMH: TIA, A Fib, HTN, B/L knee replacements.
Wound Location and type/assessment: Patient admitted with: multiple incontinent associated skin damage wounds on posterior thighs/ischium/groin/abdomen/perineum/sacrum/buttocks and gluteal cleft. All ulcers with quick eschar,periwound red and all
weeping, barrier cream in use. Has rectal trumpet and Khoury in use. Small scabbed abrasions on R lateral ankle and foot, heels intact. Daughter Asmita at bedside reports her mother seemed ok over the holidays, then found her sitting at home in feces
and urine. 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 ROMARIO Willard and Amarilys assisted with care. Patient repositioned onto L semi side lying position.
Appetite: Fair
Pressure redistribution devices in place: On Centrella air, turning schedule, pillows under calves in use.
Plan: Cleaned all wounds with assist of nurse, applied Xeroform, ABD pads and large Spandage to secure. Applied adhesive foams to heels to protect. Support given to kathryn Tian and answered all questions.
Will confirm orders with hospitalist and updated nurse Willard.
Updated care plan and will follow as needed.
Note to case management of equipment requested for discharge: air mattress.
Recommend follow up at wound care center upon discharge.
--- NOTE | 2024-07-05 15:02 | PN.CDI ---
CDI
- -
CDI:
Physician Documentation Request
Admit Date: 07/04/24 18:56
Dear Doctor Chuy,
Please review the following and provide your response in the progress notes.
Clinical Indicators:
Handy Worker, 07/05
#External medical summary lists wt as 209 lbs on 05/04/24- 10.5%
#...wt loss within 3 months is significant.
#...Observed pt with mild temporal muscle wasting and mild orbital fat loss.
#...ASPEN/AND pt meets criteria for moderate protein calorie malnutrition in the
#...context of chronic illness with 10.5% wt loss within 3 months,
#...<75% of energy requirements met for >/= 1 month, and NFPE findings.
Based on the above and your clinical assessment, please provide in the progress notes, additional specificity regarding the severity of the malnutrition:
Moderate Protein Calorie Malnutrition of chronic illness
Other (please specify)
[place] Criteria (ACP Hospitalist 2017)
2 or more criteria must be present for either
non severe or severe malnutrition
Note that the criteria differs related to the
presence of an acute or chronic illness
Chronic Illness
Energy Intake Non Severe: <75% for >1 month
Severe: <75% for >1 month
Weight Loss Non Severe: 5% over 1 month
7.5% over 3 months
10% over 6 months
20% over 1 year
Severe: >5% over 1 month
>7.5% over 3 months
>10% over 6 months
>20% over 1 year
Body Fat Non Severe: Mild Loss
Severe: Severe Loss
Muscle Mass Non Severe: Mild Loss
Severe: Severe Loss
Use of terms such as suspected, likely, concern for, or probable (associated with a specific diagnosis that is being evaluated, monitored, or treated as if it exists) are acceptable and can be coded in the inpatient setting, when documented at the
time of discharge.
Thank you,
Teresita Kaiser RN BSN CCDS
CDI Specialist
please contact via tiger text
Please use your independent medical judgment in providing your response.
--- NOTE | 2024-07-05 15:04 | PTOTSP ---
Speech Therapy Assessment
Swallowing: Patient with slow response times and was bit lethargic during session but pain meds prior to assessment may be contributing factor.
Tolerated single sips of thin liquid and pureed items. Patient with limited interest in solids but did tolerate small amount provided.
Recommend
1. IDDSI 4/0 - puree and thin liquid by single sips.
2. Meds in applesauce - crush as needed.
3. Aspiration precautions.
4. Oral care with suction toothbrush as tolerated.
5. ST will follow up tomorrow to reassess for diet advancement and determine need for VSE.
--- NOTE | 2024-07-05 15:17 | PN.CDI ---
CDI
- -
CDI:
Physician Documentation Request
Admit Date: 07/04/24 18:56
Dear Doctor Chuy,
Please review the following and provide your response in the progress notes.
Clinical Indicators:
PN, 07/05
#Acute Renal Failure
#Hyperkalemia
#Rhabdomyolysis
#...-creatinine 16 on admission with BUN 167, K+ 5.9
Please clarify in your note the type of rhabdomyolysis:
Traumatic rhabdomyolysis
Non Traumatic Rhabdomyolysis
Other(please specify)
Use of terms such as suspected, likely, concern for, or probable (associated with a specific diagnosis that is being evaluated, monitored, or treated as if it exists) are acceptable and can be coded in the inpatient setting, when documented at the
time of discharge.
Thank you,
Teresita Kaiser RN BSN CCDS
CDI Specialist
please contact via tiger text
Please use your independent medical judgment in providing your response.
--- NOTE | 2024-07-05 15:28 | PN.CDI ---
CDI
- -
CDI:
Physician Documentation Request
Admit Date: 07/04/24 18:56
Dear Doctor Chuy,
Please review the following and provide your response in the progress notes.
Clinical Indicators:
07/05/24 14:05 (created 07/05/24 15:04) - Wound Note
#Wound Location and type/assessment:
#Patient admitted with:
#...multiple incontinent associated skin damage wounds on
#...posterior thighs/ischium/groin/abdomen/perineum/sacrum/buttocks and gluteal cleft.
#All ulcers with quick eschar,periwound red and all weeping, barrier cream in use.
Selected Entries
07/04/24
20:30
Pressure injury stage [Present on admission Bilateral Buttock] Unstageable
Physician documentation of the type and location of wounds is required for compliant documentation. Based on the above clinical findings and your assessment, please provide the following in your progress note:
Location of the ulcer/wound, including laterality.
Type (etiology) of ulcer/wound:
- Diabetic ulcer
- Arterial (ischemic) ulcer
- Traumatic wound
- Pressure (decubitus) ulcer
- Other(please specify)
If a pressure ulcer, please also include the stage* of the ulcer:
- Stage 1 - Skin intact, non-blanchable redness
- Stage 2 - Partial thickness loss of dermis, includes intact or open blister
- Stage 3 - Full thickness tissue not including bone, tendon or muscle
- Stage 4 - Full thickness tissue loss, including exposed bone, tendon or muscle
- Unstageable - Full thickness loss in which the base of the ulcer is covered by slough (yellow, quick, james, green or brown) and/or eschar (quick, brown or black) in the wound bed.
Use of terms such as suspected, likely, concern for, or probable (associated with a specific diagnosis that is being evaluated, monitored, or treated as if it exists) are acceptable and can be coded in the inpatient setting, when documented at the
time of discharge.
Thank you,
Teresita Kaiser RN BSN CCDS
CDI Specialist
please contact via tiger text
Please use your independent medical judgment in providing your response.
*Source: National Pressure Ulcer Advisory Panel (NPUAP)
[2024-07-05 15:33] LABS: APTT 37.6 Sec (23.4-35.0)
[2024-07-05 15:35] LABS: Lactic Acid 1.7 mmol/L (0.7-2.0)
[2024-07-05 15:39] LABS: Calcium 8.3 mg/dl (8.4-10.2); Carbon Dioxide 28 mmol/L (22-30); Chloride 100 mmol/L (98-107); Estimated Creatinine Clearance 6 ml/min; Glucose 120 mg/dl (70-99); Potassium 3.4 mmol/L (3.5-5.1); Sodium 143 mmol/L (135-145); eGFR 4.58
[2024-07-05 15:49] LABS: Blood Urea Nitrogen 142 mg/dl (7-17)
[2024-07-05] MEDS: KCL ELIXIR 20 MEQ PO (16:44)
--- NOTE | 2024-07-05 19:30 | PTCARENOTE ---
Patient received lying in bed. She appears to be sleeping comfortably with her eyes closed, lying still and respirations non labored. SBP in the 70s with MAP 58. Levophed titrated for MAP > 65. Afebrile. Atrial fibrillation on CM with HR 120-140s.
BBS clear except faint crackles left base. Upper airway wheezes clear with cough. S1S2 irregular with positive murmur. Her speech is slightly slurred at times with some mild EA noted. Oriented to person and place, confused to time. BLE with 1+
edema, good pedal pulses. Khoury catheter patent draining cloudy yellow urine. Nasal trumpet via rectum draining mucoid liquid stool, very dark. All dressings on perineum, sacrum/buttocks and lower abdominal wounds CDI. Under left breast less
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
--- NOTE | 2024-07-05 20:30 | PTCARENOTE ---
Engineering Manager Electronics Dr. Nassar and CALL OR CONTACT CENTRE TEAM LEADER Nicole Flores notified of patient sustained HR of 130s-140s, going as high as 160s. New orders received for Amiodarone gtt.
[2024-07-05] MEDS: HEPARIN 25000 UNITS/250 ML IV (21:11)
[2024-07-05] MEDS: CORDARONE 518 MG IV (22:12)
[2024-07-05] MEDS: STERILE WATER FOR INJECTION 10 ML IV (22:12)
[2024-07-05] MEDS: ROCEPHIN 1000 MG IV (22:13)
[2024-07-05 22:45] LABS: APTT 77.7 Sec (23.4-35.0)
[2024-07-05 22:48] LABS: Potassium 3.2 mmol/L (3.5-5.1)
[2024-07-05] MEDS: LEVOPHED 250 IV (23:03)
[2024-07-05] MEDS: KCL 20 MEQ PO (23:39)
[2024-07-05] MEDS: KCL 270 MEQ IV (23:44)
[2024-07-06] VITALS (44 sets, daily range): BP systolic 86–139; BP diastolic 50–110; PULSE 85–98; O2SAT 96–97; BMI 33.0; BMI 33.3
--- NOTE | 2024-07-06 00:30 | PTCARENOTE ---
Labs drawn and K noted at 3.2. ML Flores notified. New orders received for Oral Potassium and IV KCL rider. While administering oral potassium, patient c/o mouth and throat discomfort. While examining oral cavity and tongue, patient appears to
have thrush. ML Flores made aware. Nystatin ordered. Titrated Levophed for improving BP.
[2024-07-06 06:28] LABS: Hematocrit 39.1 % (37.0-47.0); Hemoglobin 13.8 g/dL (12.0-16.0); Mean Corp Hgb Conc. 35.3 g/dL (33.0-37.0); Mean Corpuscular Hgb 30.7 pg (27.0-31.0); Mean Corpuscular Volume 86.9 fL (81.0-99.0); Mean Platelet Volume 12.2 fL (7.4-10.4); Platelet Count 312 10^3/uL (130-400); Red Cell Dist. Width 14.4 % (11.5-14.5); White Blood Cell Count 25.8 10^3/uL (4.8-10.8)
[2024-07-06 06:36] LABS: APTT 49.4 Sec (23.4-35.0)
[2024-07-06 06:58] LABS: Blood Urea Nitrogen 118 mg/dl (7-17); Calcium 8.3 mg/dl (8.4-10.2); Carbon Dioxide 26 mmol/L (22-30); Chloride 105 mmol/L (98-107); Estimated Creatinine Clearance 9 ml/min; Glucose 103 mg/dl (70-99); Magnesium 1.6 mg/dl (1.6-2.3); Phosphorus 3.9 mg/dl (2.5-4.5); Potassium 4.2 mmol/L (3.5-5.1); Sodium 143 mmol/L (135-145); eGFR 6.92
[2024-07-06] MEDS: NSS 1000 IV ×3 (07:28→22:23)
--- NOTE | 2024-07-06 07:41 | PTCARENOTE ---
Report given verbally to oncoming shift, ROMARIO Mahmood. Questions answered.
--- NOTE | 2024-07-06 07:48 | PTCARENOTE ---
recd 0715, handoff and report bedside. posterior skin assessment with previous RN, pt continues to c/o 'no' reassured about pain meds with dressing change and instructed re: need for pressure relief with turning. oriented to person and place but
has 'no idea' why in hospital. heparin PTT assessment, increased per protocol. amio infusing, IV sites inspected.
[2024-07-06] MEDS: MYCOSTATIN ORAL SUSPENSION 5 ML PO ×3 (08:15→20:44)
--- NOTE | 2024-07-06 09:07 | W.PN.HOSP.TC ---
Today's Communication/Plan
-
see plan
Assessment / Plan
Assessment / Plan
69-year-old woman with past medical history of hypertension and prior stroke who presents with weakness. Patient unable to provide additional history. She was last seen by her family 6 days ago. Patient was found sitting on the couch covered in
urine and feces. It is unclear how long she had been on the couch. Severe skin excoriation on groin folds and under breasts.
Abdomen/Pelvis CT
IMPRESSION:
1). There is no evidence of acute pathology
2). 2 cm right adrenal adenoma
3). Cholecystectomy
4). Multilevel lumbar degenerative disc disease
HEAD CT
IMPRESSION:
There are no acute intracranial abnormalities.
There is old a 3.5 cm cm right parietal white matter infarct
There is old 3 cm right frontal convexity infarct
There is old 3 mm lacunar infarct in the anterior aspect of the right thalamus
There is mild diffuse cortical atrophy with mild nonspecific white matter changes as described above.
CXR
IMPRESSION:
No active cardiopulmonary disease.
Acute Renal Failure
Hyperkalemia
Rhabdomyolysis
-creatinine 16 on admission with BUN 167, K+ 5.9
-case discussed with Nephrology by ER attending
-s/p sodium bicarb, now receiving NS; creatinine improving
-CK has improved from 954 to 814
-appreciate Renal
Ambulatory Dysfunction, significant weakness
-PT/OT
Transaminitis in setting of sepsis/dehydration
-resolved this AM with mildly elevated AST related to muscle
Severe Sepsis
Lactic Acidosis
-flu and covid negative
-lactic acidosis resolved
-continue IV Ceftriaxone
-F/U cultures
Diarrhea
-C. Diff and norovirus negative
Skin Breakdown involving breast, abdomen and groin folds
-Consult Wound Care appreciate consult
Tachy-Boogie Syndrome s/p Permanent Pacemaker
Atrial Fibrillation with RVR
-s/p 1 dose IV metop
-patient tachy to 120's - follow up response to small fluid bolus
-cardiology consulted
-IV heparin gtt
-overnight 07/05-07/06 amiodarone initiated for increased HR's
Hx Right Parietal Stroke
-Continue aspirin
DVT proph: heparin gtt
Code Status: Full Code
51 minutes spent on patient care
Anticipated Discharge: > 48 hours
Subjective/Interval History
-
Date of Service: July 06, 2024
seen with daughter at bedside
denies palpitations or chest pain
no shortness of breath
Objective Data
-
Labs:
Laboratory Results
07/05/24 07/06/24 07/06/24
22:26 05:57 13:30
WBC 25.8 H
Hgb 13.8
Hct 39.1
Plt Count 312
APTT 77.7 H 49.4 H Pending
Sodium 143
Potassium 3.2 L 4.2 D
Chloride 105
Carbon Dioxide 26
BUN 118 H*
Creatinine 6.1 H*
Glucose 103 H
Calcium 8.3 L
Vital Signs:
Vital Signs
Temp Pulse Resp BP Pulse Ox
97.4 F 131 20 118/86 97
07/06/24 07:35 07/06/24 07:30 07/06/24 07:30 07/06/24 07:30 07/06/24 07:54
I&O
07/05/24 07/06/24 07/07/24
06:59 06:59 06:59
Intake Total 1668.8 / 1668.8 3778.1 / 3908.8 263.4 / 263.4
Output Total 1620 / 1620 3125 / 3125 250 / 250
Balance 48.8 / 48.8 653.1 / 783.8 13.4 / 13.4
Review of Systems
-
History Source: Patient
All other systems: Reviewed and negative
Physical Exam
-
General: No Apparent Distress
HEENT: PERRLA
Respiratory: Clear to Auscultation; Negative Wheezes
Cardiac: Irregular Rhythm and Tachycardic
GI: Soft and Nontender
Skin: Warm and Dry; Negative Rash
Neuro: Awake, Alert, Oriented and Other (moves all extremities, follows commands, ISAAK, EOMI, no facial asymmetry, bilateral pronator drift? (chronic?); can wiggle toes and following commands )
Psych: Calm
Data Reviewed
-
Diagnostic Radiology: Report Reviewed by me
Labs: Labs Reviewed by me
[2024-07-06] MEDS: ROXICODONE 2.5 MG PO ×2 (09:57→23:19)
--- NOTE | 2024-07-06 10:38 | PTCARENOTE ---
seen by Dr. Barksdale, pt converted spontaneously upon MD arrival to NSR. 12 lead obtained. appetite fair.
[2024-07-06] MEDS: MYCOSTATIN ORAL SUSPENSION PO (11:29)
--- NOTE | 2024-07-06 11:29 | PTCARENOTE ---
wound care, dressing changes, 3 staff and daughter assisting. echo presently in progress.
--- NOTE | 2024-07-06 12:08 | W.PN.NEPH.PH ---
Today's Communication / Plan
-
follow BMP
Assessment/Plan
-
Assessment
DENA
Hyperkalemia
Metabolic acidosis
Azotemia
Lactic acidosis
Hypotension
Atrial fibrillation
Mental status change
History of stroke
Elevated LFTs
Elevated CPK
Plan
Continue IV fluids, NSS
Maintain Cortes catheter for now until Cr < 4
Serial BMP
No emergent need for dialysis
Empiric antibiotics per primary team
Wean Levophed
Critical care time spent 31 minutes
-
-
Date of Service: July 06, 2024
CC / HPI / ROS
-
Chief Complaint:
DENA
History of Present Illness:
DENA/Cr down to 6.1
BUN down to 118
BP stable on levophed
acidosis improved
K normal now
cortes in place for DENA
Afib converted to sinus this morning
Review of Systems:
no CP/SOB
Labs
-
Labs:
WBC 25.8 10^3/uL (4.8-10.8) H 07/06/24 05:57
RBC 4.50 10^6/uL (4.20-5.40) 07/06/24 05:57
Hgb 13.8 g/dL (12.0-16.0) 07/06/24 05:57
Hct 39.1 % (37.0-47.0) 07/06/24 05:57
Plt Count 312 10^3/uL (130-400) 07/06/24 05:57
Sodium 143 mmol/L (135-145) 07/06/24 05:57
Potassium 4.2 mmol/L (3.5-5.1) D 07/06/24 05:57
Chloride 105 mmol/L (98-107) 07/06/24 05:57
Carbon Dioxide 26 mmol/L (22-30) 07/06/24 05:57
BUN 118 mg/dl (7-17) H* 07/06/24 05:57
Creatinine 6.1 mg/dL (0.6-1.0) H* 07/06/24 05:57
eGFR 6.92 07/06/24 05:57
Glucose 103 mg/dl (70-99) H 07/06/24 05:57
Calcium 8.3 mg/dl (8.4-10.2) L 07/06/24 05:57
Phosphorus 3.9 mg/dl (2.5-4.5) 07/06/24 05:57
Pqu-G-Htqklcsxrwk Pept 7420 pg/ml 07/04/24 16:11
Albumin 2.5 g/dl (3.5-5.0) L 07/05/24 06:33
Physical Exam
-
Vital Signs:
Vital Signs
Temp Pulse Resp BP Pulse Ox
97.4 F 84 19 90/63 94
07/06/24 07:35 07/06/24 11:30 07/06/24 11:30 07/06/24 11:30 07/06/24 11:30
Cardiovascular:: Regular rate and rhythm
Respiratory:: Bilateral: Coarse
Lung Excursion:: Normal
Abdomen:: Nontender and Soft
Bowel Sounds:: Normal
Extremity Edema:: None: Bilateral:
[2024-07-06] MEDS: ELIQUIS 5 MG PO ×2 (12:15→20:44)
[2024-07-06] MEDS: PACERONE 400 MG PO ×2 (12:15→20:43)
--- NOTE | 2024-07-06 12:54 | W.PN.CD ---
Today's Communication / Plan
-
Switch heparin to apixaban 5 mg twice daily
Switch IV amiodarone to p.o. 400 mg twice daily x7 days then 200 mg daily.
Add beta-yemi once blood pressures improve.
Impression / Plan
-
IMPRESSION/PLAN: 69F with nonobstructive coronary artery disease, hypertension, hyperlipidemia, chronic kidney disease, tachybradycardia syndrome status post pacemaker (Medtronic), and prior CVA presented with weakness and change in mental status
after being found down. She was admitted with sepsis, rhabdo, and DENA. Cardiology was consulted for atrial fibrillation with rapid ventricular response.
Primary Line Worker: Dr. Womack
Atrial fibrillation with rapid ventricular response, resolved
-Patient converted to normal sinus rhythm with IV Amio drip on 07/06/2024.
-Start amiodarone 400 mg twice daily for loading. Switch to 200 mg daily after 1 week. She may be able to be taken off this eventually as I suspect her atrial fibrillation was triggered by rhabdo and DENA.
-Low BPs preclude rate control at this time
-Oral Anticoagulation: Start apixaban 5 mg twice daily (riojas ok given that plan is for long-term care)
-[id number]: score at least 6 (HTN, prior Stroke/TIA, Vascular disease, age 65-74, female gender)
Septic shock, in the setting of UTI
-Hypotension, leukocytosis, lactic acidosis, DENA
-Lactic acidosis slowly improving, CK improving
-C Diff and Norovirus negative (she has diarrhea)
-Blood cultures are negative thus far
DENA on CKD3a
-Improving, nephrology following
Hyperkalemia, in the setting of DENA, nephrology follow
Tachybradycardia syndrome status post Medtronic PPM (10/2022), bedside [facility] performed
Hypertension, now hypotensive
-Resume home lisinopril�HCTZ as tolerated
Dyslipidemia, given her prior CVA and nonobstructive CAD, statin is recommended, initiate after status improves
Nonobstructive coronary artery disease, stable without chest pain
Prior right parietal stroke
Subjective: Patient is still very confused. Not able to answer questions appropriately. Telemetry reveals that her atrial fibrillation broke around 10 AM. She is now in sinus rhythm.
Physical Exam
Vital Signs/Labs
Vital Signs
Temp Pulse Resp BP Pulse Ox
97.5 F 78 19 98/67 94
07/06/24 11:25 07/06/24 12:15 07/06/24 11:30 07/06/24 12:15 07/06/24 11:30
07/05/24 07/06/24 07/07/24
06:59 06:59 06:59
Actual Weight 85.2 kg 87.1 kg 87.9 kg
07/06/24 05:57
07/06/24 05:57
APTT Cancelled 07/06/24 13:30
Magnesium 1.6 mg/dl (1.6-2.3) 07/06/24 05:57
07/04/24
16:11
Tqw-C-Wdadvzugfqm Pept 7420
Physical Exam
Constitutional: No acute distress and Comfortable
Cardiovascular: Rhythm & rate is regular, Pedal edema is absent, S1S2 is normal and Murmur/rub/gallop absent
Respiratory: Respiratory effort normal and Lungs clear to auscul.
Data Reviewed
-
Date of Service: July 06, 2024
Medical Decision Making: Reviewed Test Results, Independent Historian Assessment, Test Interpretation and Review of Case with other Provider
EKG: Tracing Personally Visualized and interpreted
X-Ray/CT/US/MRI/NUC/PET: Image Personally Visualized and interpreted
Labs: Labs Reviewed by me
--- NOTE | 2024-07-06 14:40 | PTOTSP ---
Speech Language Pathology
Pt seen for dysphagia tx. Pt denied any difficulty chewing/swallowing at home. P.O. trials of puree, regular solids, and thin liquids provided. Slightly prolonged mastication, but this was functional given additional time. Able to clear oral
cavity independently. No overt signs of aspiration.
Recommend:
(1) Regular solids/thin liquids
(2) Aspiration precautions: sit upright, slow rate
(3) Meds as tolerated
(4) SMALL ENGINE TECHNICIAN to continue to follow
--- NOTE | 2024-07-06 15:10 | CM ---
CM following re: discharge planning.
Reviewed pt's chart, met with t and pt's daughter Asmita at bedside.
PT, OT and ST evaluations noted - skilled level of care recommended. Both pt and her daughter are aware, expressed their agreement. Pt's daughter stated she has a list of SNFs, had discussion with her brother and they will decide on preferences by
tomorrow.
D/C plan: preferred SNF.
CM will follow to assist pt with discharge to a preferred SNF when pt is medically stable.
--- NOTE | 2024-07-06 16:52 | PTCARENOTE ---
continues to refuse care but turning with assistance, occas calls out. calmer than earlier. appetite poor for dinner, small bite chicken salad, tiny bite custard, 1/2 container applesauce, drinking fluids, additional iced tea ordered.
--- NOTE | 2024-07-06 18:17 | PTCARENOTE ---
continues reluctant to be turned, posterior skin assessment unchanged, positioned for comfort. appetite terrible.
[2024-07-06] MEDS: STERILE WATER FOR INJECTION 10 ML IV (20:44)
[2024-07-06] MEDS: ROCEPHIN 1000 MG IV (20:45)
--- NOTE | 2024-07-06 21:40 | PTCARENOTE ---
On assessment pt AAOx2, c/o generalized discomfort, pt repositioned, SR on the monitor, 94% RA, rectal trumpet in place, cortes in place for DENA, wound care completed during the day, call ball in reach
[2024-07-06] MEDS: TYLENOL 650 MG PO (23:19)
[2024-07-07] VITALS (21 sets, daily range): BP systolic 92–133; BP diastolic 47–76; BMI 33.9
[2024-07-07] MEDS: ROXICODONE 2.5 MG PO ×2 (00:40→06:13)
[2024-07-07 04:11] LABS: Hemoglobin 11.6 g/dL (12.0-16.0); Mean Corp Hgb Conc. 33.1 g/dL (33.0-37.0); Mean Corpuscular Hgb 30.1 pg (27.0-31.0); Mean Corpuscular Volume 90.7 fL (81.0-99.0); Mean Platelet Volume 11.9 fL (7.4-10.4); Platelet Count 273 10^3/uL (130-400); Red Blood Cell Count 3.86 10^6/uL (4.20-5.40); Red Cell Dist. Width 15.1 % (11.5-14.5); White Blood Cell Count 24.7 10^3/uL (4.8-10.8)
[2024-07-07 04:46] LABS: Blood Urea Nitrogen 104 mg/dl (7-17); Carbon Dioxide 25 mmol/L (22-30); Chloride 107 mmol/L (98-107); Estimated Creatinine Clearance 16 ml/min; Glucose 91 mg/dl (70-99); Potassium 4.3 mmol/L (3.5-5.1); Sodium 140 mmol/L (135-145); eGFR 13.03
--- NOTE | 2024-07-07 05:34 | PTCARENOTE ---
DEMAND PLANNING MANAGER paged about morning labs
hbg dropped from 13.8 to 11.6, no signs of active bleeding noted.
calcium 8.0
[2024-07-07] MEDS: TYLENOL 650 MG PO (06:13)
[2024-07-07] MEDS: MYCOSTATIN ORAL SUSPENSION 5 ML PO ×3 (07:47→20:24)
[2024-07-07] MEDS: PACERONE 400 MG PO ×2 (07:47→20:23)
[2024-07-07] MEDS: ELIQUIS 5 MG PO ×2 (07:48→20:24)
--- NOTE | 2024-07-07 08:26 | W.PN.HOSP.TC ---
Addendum entered and electronically signed by Griselda Vera MD 07/07/24 08:58:
with persistent leukocytosis and cellulitis surrounding wounds; growth of additional organism in urine - I will broaden antibiotics to zosyn
Original Note:
Today's Communication/Plan
-
pain control/ wound care
PT/OT
F/U final urine culture
IVF
Assessment / Plan
Assessment / Plan
69-year-old woman with past medical history of hypertension and prior stroke who presents with weakness. Patient unable to provide additional history. She was last seen by her family 6 days ago. Patient was found sitting on the couch covered in
urine and feces. It is unclear how long she had been on the couch. Severe skin excoriation on groin folds and under breasts.
Abdomen/Pelvis CT
IMPRESSION:
1). There is no evidence of acute pathology
2). 2 cm right adrenal adenoma
3). Cholecystectomy
4). Multilevel lumbar degenerative disc disease
HEAD CT
IMPRESSION:
There are no acute intracranial abnormalities.
There is old a 3.5 cm cm right parietal white matter infarct
There is old 3 cm right frontal convexity infarct
There is old 3 mm lacunar infarct in the anterior aspect of the right thalamus
There is mild diffuse cortical atrophy with mild nonspecific white matter changes as described above.
CXR
IMPRESSION:
No active cardiopulmonary disease.
Acute Renal Failure
Hyperkalemia
Rhabdomyolysis- nontraumatic
-creatinine 16 on admission with BUN 167, K+ 5.9
-s/p sodium bicarb, now receiving NS; creatinine improving
-CK has improved from 954 to 814
-appreciate Renal
Ambulatory Dysfunction, significant weakness
-PT/OT
Transaminitis in setting of sepsis/dehydration
-resolved this AM with mildly elevated AST related to muscle
Severe Sepsis
Lactic Acidosis
-flu and covid negative
-lactic acidosis resolved
-continue IV Ceftriaxone
-F/U cultures
Diarrhea
-C. Diff and norovirus negative
Skin Breakdown involving breast, abdomen and groin folds
#...multiple incontinent associated skin damage wounds on
#...posterior thighs/ischium/groin/abdomen/perineum/sacrum/buttocks and gluteal cleft.
-Consult Wound Care appreciate consult
-pain control
Tachy-Boogie Syndrome s/p Permanent Pacemaker
Atrial Fibrillation with RVR
-s/p 1 dose IV metop
-overnight 07/05-07/06 amiodarone initiated for increased HR's, patient converted to sinus
-appreciate Cardiology
-patient started on Eliquis and oral amiodarone
Moderate Protein Calorie Malnutrition of chronic illness
-appreciate dietary
Hx Right Parietal Stroke
Eliquis as above
DVT proph: Eliquis
Code Status: Full Code
51 minutes spent on patient care
Anticipated Discharge: > 48 hours
Subjective/Interval History
-
Date of Service: July 07, 2024
having diarrhea
no abdominal pain
no new complaints
Objective Data
-
Labs:
Laboratory Results
07/07/24
03:50
WBC 24.7 H
Hgb 11.6 L
Hct 35.0 L
Plt Count 273
Sodium 140
Potassium 4.3
Chloride 107
Carbon Dioxide 25
BUN 104 H*
Creatinine 3.6 H
Glucose 91
Calcium 8.0 L
Vital Signs:
Vital Signs
Temp Pulse Resp BP Pulse Ox
98.3 F 78 12 101/61 94
07/06/24 23:00 07/07/24 07:47 07/07/24 07:00 07/07/24 07:47 01/22/25 07:00
I&O
07/06/24 07/07/24 07/08/24
06:59 06:59 06:59
Intake Total 3778.1 / 3908.8 3254.2 / 3254.2
Output Total 3125 / 3125 1250 / 1250
Balance 653.1 / 783.8 2003.2 / 2003.2
Review of Systems
-
History Source: Patient
All other systems: Reviewed and negative
Physical Exam
-
General: No Apparent Distress
HEENT: PERRLA
Respiratory: Clear to Auscultation; Negative Wheezes
Cardiac: Irregular Rhythm and Tachycardic
GI: Soft and Nontender
Skin: Warm and Dry; Negative Rash
Neuro: Awake, Alert, Oriented and Other (moves all extremities, follows commands, ISAAK, EOMI, no facial asymmetry, bilateral pronator drift? (chronic?); can wiggle toes and following commands )
Psych: Calm
Data Reviewed
-
Diagnostic Radiology: Report Reviewed by me
Labs: Labs Reviewed by me
--- NOTE | 2024-07-07 09:30 | PN.CDI ---
CDI
- -
CDI:
Physician Documentation Request
Admit Date: 07/04/24 18:56
Dear Doctor Chuy,
Please review the following and provide your response in the progress notes.
Clinical Indicators:
07/06/24 00:30 (created 07/06/24 01:56) - Patient Care Note
#...patient c/o mouth and throat discomfort.
#...While examining oral cavity and tongue, patient appears to have thrush.
Medications
#Nystatin (Nystatin Oral Suspension 500,000 Units/5 Ml) 5 ml PO QID ERA
Stop: 08/03/24 07:59
Last Admin: 07/07/24 07:47 Dose: 5 ml
Based on the above and your clinical assessmnet, please clarify the appropriate diagnosis, if significant, that supports the above abnormalities and additional evaluation, monitoring and/or treatment rendered:
Thrush
Other(please specify)
Use of terms such as suspected, likely, concern for, or probable (associated with a specific diagnosis that is being evaluated, monitored, or treated as if it exists) are acceptable and can be coded in the inpatient setting, when documented at the
time of discharge.
Thank you,
Teresita Kaiser RN BSN CCDS
CDI Specialist
please contact via tiger text
Please use your independent medical judgment in providing your response.
--- NOTE | 2024-07-07 09:35 | PN.CDI ---
CDI
- -
CDI:
Physician Documentation Request
Admit Date: 07/04/24 18:56
Dear Doctor Chuy,
Please review the following and provide your response in the progress notes.
The purpose of this query is to ensure the accuracy of the conditions reported for your patient.
Clinical Indicators:
Cardiology, consult, 07/05
#...treated for septic shock/UTI. Acute renal failure was present on admission.
Cardiology, PN, 07/06
#Septic shock, in the setting of UTI
#-Hypotension, leukocytosis, lactic acidosis, DENA
PN, 07/07
#Severe Sepsis
#Lactic Acidosis
07/06/24 00:30 (created 07/06/24 01:56) - Patient Care Note
#...Titrated Levophed for improving BP.
Medications
Discontinued Medications
Norepinephrine Bitartrate (Levophed) 4 mg in 250 mls @ 0 mls/hr IV PER PROTOCOL ERA; Protocol
Last Admin: 07/05/24 23:03 Dose: 250 mls
Based on the above and you clinical assessment, please clarify which of the following is the most likely etiology of the above symptoms and treatment rendered:
Severe sepsis with septic shock
Severe sepsis without septic shock
Hypotension only
Other(please specify)
Use of terms such as suspected, likely, concern for, or probable (associated with a specific diagnosis that is being evaluated, monitored, or treated as if it exists) are acceptable and can be coded in the inpatient setting, when documented at the
time of discharge.
Thank you,
Teresita Kaiser RN BSN CCDS
CDI Specialist
please contact via tiger text
Please use your independent medical judgment in providing your response.
--- NOTE | 2024-07-07 09:51 | W.PN.NEPH.PH ---
Today's Communication / Plan
-
Continue IV fluid
Assessment/Plan
-
Assessment
DENA
Hyperkalemia
Metabolic acidosis
Azotemia
Lactic acidosis
Hypotension
Atrial fibrillation
Mental status change
History of stroke
Elevated LFTs
Elevated CPK
Plan
Continue IV fluids, NSS
Maintain Cortes catheter for now
Serial BMP
No emergent need for dialysis
Empiric antibiotics per primary team
Renal function improved
Critical care time spent 31 minutes
-
-
Date of Service: July 07, 2024
CC / HPI / ROS
-
Chief Complaint:
DENA
History of Present Illness:
Renal function continues to improve
acidosis improved
K normal now
cortes in place for DENA
Review of Systems:
no CP/SOB
Labs
-
Labs:
WBC 24.7 10^3/uL (4.8-10.8) H 07/07/24 03:50
RBC 3.86 10^6/uL (4.20-5.40) L 07/07/24 03:50
Hgb 11.6 g/dL (12.0-16.0) L 07/07/24 03:50
Hct 35.0 % (37.0-47.0) L 07/07/24 03:50
Plt Count 273 10^3/uL (130-400) 07/07/24 03:50
Sodium 140 mmol/L (135-145) 07/07/24 03:50
Potassium 4.3 mmol/L (3.5-5.1) 07/07/24 03:50
Chloride 107 mmol/L (98-107) 07/07/24 03:50
Carbon Dioxide 25 mmol/L (22-30) 07/07/24 03:50
BUN 104 mg/dl (7-17) H* 07/07/24 03:50
Creatinine 3.6 mg/dL (0.6-1.0) H 07/07/24 03:50
eGFR 13.03 07/07/24 03:50
Glucose 91 mg/dl (70-99) 07/07/24 03:50
Calcium 8.0 mg/dl (8.4-10.2) L 07/07/24 03:50
Phosphorus 3.9 mg/dl (2.5-4.5) 07/06/24 05:57
Ndl-F-Acupiskhvzn Pept 7420 pg/ml 07/04/24 16:11
Albumin 2.5 g/dl (3.5-5.0) L 07/05/24 06:33
Physical Exam
-
Vital Signs:
Vital Signs
Temp Pulse Resp BP Pulse Ox
97.7 F 78 12 101/61 94
07/07/24 08:00 07/07/24 07:47 07/07/24 07:00 07/07/24 07:47 07/07/24 07:00
Cardiovascular:: Regular rate and rhythm
Respiratory:: Bilateral: Coarse
Lung Excursion:: Normal
Abdomen:: Nontender and Soft
Bowel Sounds:: Normal
Extremity Edema:: None: Bilateral:
--- NOTE | 2024-07-07 09:52 | PN.CDI ---
CDI
- -
CDI:
Physician Documentation Request
Admit Date: 07/04/24 18:56
Dear Doctor Chuy,
Please review the following and provide your response in the progress notes.
Clinical Indicators:
Cardiology, 07/06
#Subjective: Patient is still very confused.
#...Not able to answer questions appropriately.
Based on the above and your clinical assessment, please clarify in the Progress Notes and Discharge Summary which, if any of the following, is the most likely etiology of the confusion/altered mental status.
Encephalopathy - indicate type, such as metabolic, toxic, septic, alcoholic, anoxic, hypertensive etc. due to a specific condition such as UTI, CVA, hyponatremia etc.
Acute or subacute confusional state due to ____ (specify known or suspected etiology)
Other (please specify)
Use of terms such as suspected, likely, concern for, or probable (associated with a specific diagnosis that is being evaluated, monitored, or treated as if it exists) are acceptable and can be coded in the inpatient setting, when documented at the
time of discharge.
Thank you,
Teresita Kaiser RN BSN CCDS
CDI Specialist
please contact via tiger text
Please use your independent medical judgment in providing your response.
--- NOTE | 2024-07-07 10:35 | W.PN.CD ---
Today's Communication / Plan
-
Amio 400 bid through Jul 12
Amio 200 mg daily starting Jul 13
May chose to STOP Amio in 3-4 months and watch to see when/if AFib recurs
Continue Eliquis
Later consider resuming lisinopril�HCTZ when renal function at baseline, or chose alternative BP regimen
Impression / Plan
-
Background: 69F with nonobstructive coronary artery disease, hypertension, hyperlipidemia, chronic kidney disease, tachybradycardia syndrome status post pacemaker ([employer]tronic), and prior CVA presented with weakness and change in mental status after
being found down. She was admitted with sepsis, rhabdo, and DENA. Cardiology was consulted for atrial fibrillation with rapid ventricular response.
Primary Senior Telecommunications Engineer: Dr. Womack
Atrial fibrillation with rapid ventricular response, resolved
-Patient converted to normal sinus rhythm with IV Amio drip on 07/06/2024.
-Start amiodarone 400 mg twice daily for loading. Switch to 200 mg daily after 1 week. She may be able to be taken off this eventually as I suspect her atrial fibrillation was triggered by rhabdo and DENA.
-Low BPs preclude rate control at this time
-Oral Anticoagulation: Start apixaban 5 mg twice daily (riojas ok given that plan is for long-term care)
-[id number]: score at least 6 (HTN, prior Stroke/TIA, Vascular disease, age 65-74, female gender)
Amio 400 bid through Jul 12
Amio 200 mg daily starting Jul 13
May chose to STOP Amio in 3-4 months and watch to see when/if AFib recurs
Continue Eliquis
Tachybradycardia syndrome status post Medtronic PPM (10/2022)
Septic shock, in the setting of UTI, resolved
DENA on CKD3a => Improving, nephrology following
Hypertension, now hypotensive
-Resume home lisinopril�HCTZ as tolerated or chose alternative HTN regimen
Dyslipidemia, given her prior CVA and nonobstructive CAD, statin is recommended, initiate after status improves
Nonobstructive coronary artery disease, stable without chest pain
Prior right parietal stroke
Subjective: Pleasant not clearly oriented. Denies CP/Dyspnea.
Physical Exam
Vital Signs/Labs
Vital Signs
Temp Pulse Resp BP Pulse Ox
97.7 F 78 12 101/61 94
07/07/24 08:00 07/07/24 07:47 07/07/24 07:00 07/07/24 07:47 07/07/24 07:00
07/06/24 07/07/24 07/08/24
06:59 06:59 06:59
Actual Weight 87.1 kg 89.5 kg
07/07/24 03:50
07/07/24 03:50
APTT Cancelled 07/06/24 13:30
Magnesium 1.6 mg/dl (1.6-2.3) 07/06/24 05:57
07/04/24
16:11
Mfd-T-Gxofxcinhey Pept 7420
Physical Exam
Constitutional: No acute distress
EENT: Anicteric
Cardiovascular: Rhythm & rate is regular and Pedal edema is absent
Respiratory: Respiratory effort normal and Lungs clear to auscul.
GI: Soft and Distention absent
Neuro/Psych: Alert
Data Reviewed
-
Date of Service: July 07, 2024
--- NOTE | 2024-07-07 10:36 | PTCARENOTE ---
recd pt 0715 drowsy, awakens, 'I just want to sleep' awaiting breakfast. denies pain when undisturbed. with turning, continues to 'no' and support/reassurance about need to turn and reposition for skin/healing/pressure reduction. Turned, FMS
irrigated, draining liquid brown. ABD pad changed sacral area for drainage. fed breakfast, ate 1 bite morel, spit out pancake, 'I want applesauce'. call williamson in reach. Seen by Drs. Vera and Brandon.
[2024-07-07] MEDS: ZOSYN 50 IV ×3 (10:51→22:18)
[2024-07-07] MEDS: ROXICODONE 5 MG PO ×2 (11:44→22:17)
[2024-07-07] MEDS: NSS 1000 IV ×2 (11:45→22:18)
[2024-07-07] MEDS: MYCOSTATIN ORAL SUSPENSION PO (12:00)
--- NOTE | 2024-07-07 16:44 | CM ---
employment evaluator/case manager spoke with daughter Asmita and she has 2 siblings who are reviewing skilled options, per family they have found a pharmacy where they can get Eliquis for cheaper than local pharmacy, plan is for skilled placement but family still have
not made a decision.
Plan; Skilled placement.
--- NOTE | 2024-07-07 17:18 | PTCARENOTE ---
family in to visit, attempted to feed pt, very little appetite even wtih encouragement. RN asked patient if she wanted to get better, first response was 'no' then she admitted that she did. still unwilling to eat more than a few bites (sweet
potatoes, 2 bites chocolate pudding).
--- NOTE | 2024-07-07 18:15 | TRANSFER ---
to room 3351 in IMU, report given. no change in patient assessment.
[2024-07-08] VITALS (13 sets, daily range): BP systolic 118–148; BP diastolic 50–90; PULSE 92; O2SAT 97; BMI 34.6
[2024-07-08] MEDS: ROXICODONE 5 MG PO ×3 (04:25→18:22)
[2024-07-08] MEDS: ZOSYN 50 IV ×4 (04:25→21:50)
[2024-07-08 05:08] LABS: Hematocrit 35.7 % (37.0-47.0); Mean Corp Hgb Conc. 33.6 g/dL (33.0-37.0); Mean Corpuscular Hgb 31.3 pg (27.0-31.0); Mean Platelet Volume 11.7 fL (7.4-10.4); Platelet Count 285 10^3/uL (130-400); Red Blood Cell Count 3.84 10^6/uL (4.20-5.40); Red Cell Dist. Width 15.2 % (11.5-14.5)
[2024-07-08 05:33] LABS: Blood Urea Nitrogen 78 mg/dl (7-17); Calcium 7.6 mg/dl (8.4-10.2); Carbon Dioxide 23 mmol/L (22-30); Chloride 113 mmol/L (98-107); Estimated Creatinine Clearance 20 ml/min; Glucose 88 mg/dl (70-99); Potassium 3.9 mmol/L (3.5-5.1); Sodium 143 mmol/L (135-145); eGFR 17.62
--- NOTE | 2024-07-08 06:03 | PTCARENOTE ---
No acute events overnight. PRN oxycodone given for severe pain at wound sites. Wound care completed as ordered- patient anxious and hesitant with care at times. Emotional support provided.
--- NOTE | 2024-07-08 07:33 | W.PN.HOSP.TC ---
Addendum entered and electronically signed by Griselda Vera MD 07/08/24 08:52:
severe sepsis with septic shock
-shock resolved
Thrush
-continue Nystatin
Original Note:
Today's Communication/Plan
-
mentation improving daily
continue IV Zosyn for treatment of UTI and cellulitis surrounding wounds
NS @ 100, daily BMP
PT/OT - eventual SNF
pain control
Assessment / Plan
Assessment / Plan
69-year-old woman with past medical history of hypertension and prior stroke who presents with weakness. Patient was unable to provide additional history. She was last seen by her family 6 days ago. Patient was found sitting on the couch covered
in urine and feces. It is unclear how long she had been on the couch. Severe skin excoriation on groin folds and under breasts. She was found to have acute renal failure, UTI and new afib.
Abdomen/Pelvis CT
IMPRESSION:
1). There is no evidence of acute pathology
2). 2 cm right adrenal adenoma
3). Cholecystectomy
4). Multilevel lumbar degenerative disc disease
HEAD CT
IMPRESSION:
There are no acute intracranial abnormalities.
There is old a 3.5 cm cm right parietal white matter infarct
There is old 3 cm right frontal convexity infarct
There is old 3 mm lacunar infarct in the anterior aspect of the right thalamus
There is mild diffuse cortical atrophy with mild nonspecific white matter changes as described above.
CXR
IMPRESSION:
No active cardiopulmonary disease.
Acute Renal Failure
Hyperkalemia
Rhabdomyolysis- nontraumatic
-creatinine 16 on admission with BUN 167, K+ 5.9
-s/p sodium bicarb, now receiving NS; creatinine and BUN continuing to downtrend daily
-CK improved
-appreciate Renal
Severe Sepsis 2/2 Urinary Tract Infection versus cellulitis surrounding mutliple wounds
-flu and covid negative
-lactic acidosis resolved
-patient broadened from IV Ceftriaxone to IV Zosyn on 07/07 given persistent leukocytosis and possible contribution from cellulitis from severe wounds
TME 2/2 acute renal failure and sepsis
-patient's mentation improving daily. Updated daughter this morning who agrees, able to hold more conversation
Tachy-Boogie Syndrome s/p Permanent Pacemaker
Atrial Fibrillation with RVR
-overnight 07/05-07/06 amiodarone initiated for increased HR's, patient converted to sinus
-appreciate Cardiology
-patient started on Eliquis and oral amiodarone: Amio 400 bid through Jul 12; Amio 200 mg daily starting Jul 13
Ambulatory Dysfunction, significant weakness
-PT/OT --> eventual SNF
-pain control for wounds pre-PT
Transaminitis in setting of sepsis/dehydration
-resolved with mildly elevated AST related to muscle
Diarrhea
-C. Diff and norovirus negative; will also check stool culture, ova and parasites given persistence
-start probiotics
Skin Breakdown involving breast, abdomen and groin folds
#...multiple incontinent associated skin damage wounds on
#...posterior thighs/ischium/groin/abdomen/perineum/sacrum/buttocks and gluteal cleft.
appreciate wound care consult
continue pain control
Moderate Protein Calorie Malnutrition of chronic illness
-appreciate dietary
Hx Right Parietal Stroke
Eliquis as above
DVT proph: Eliquis
Code Status: Full Code
51 minutes spent on patient care
Anticipated Discharge: > 48 hours
Subjective/Interval History
-
Date of Service: July 08, 2024
more alert today
able to tell me about her family
denies pain
legs feel very weak
Objective Data
-
Labs:
Laboratory Results
07/08/24
04:32
WBC 24.0 H
Hgb 12.0
Hct 35.7 L
Plt Count 285
Sodium 143
Potassium 3.9
Chloride 113 H
Carbon Dioxide 23
BUN 78 H
Creatinine 2.8 H
Glucose 88
Calcium 7.6 L
Vital Signs:
Vital Signs
Temp Pulse Resp BP Pulse Ox
98.3 F 91 17 125/62 96
07/08/24 03:00 07/08/24 05:00 07/08/24 05:00 07/08/24 04:00 07/08/24 05:00
I&O
07/07/24 07/08/24 07/09/24
06:59 06:59 06:59
Intake Total 3254.2 / 3354.2 1830 / 1830
Output Total 1250 / 1250 975 / 975
Balance 2004.2 / 2104.2 855 / 855
Review of Systems
-
History Source: Patient
All other systems: Reviewed and negative
Physical Exam
-
General: No Apparent Distress
HEENT: PERRLA
Respiratory: Clear to Auscultation; Negative Wheezes
Cardiac: Irregular Rhythm and Tachycardic
GI: Soft and Nontender
Skin: Warm and Dry; Negative Rash
Neuro: Awake, Alert, Oriented and Other (can wiggle toes but has generalized b/l LE weakness; more communicative today )
Psych: Calm
Data Reviewed
-
Diagnostic Radiology: Report Reviewed by me
Labs: Labs Reviewed by me
--- NOTE | 2024-07-08 08:27 | W.PN.CD ---
Today's Communication / Plan
-
Continue Amiodarone load as follows:
Amio 400 bid through Jul 12
Amio 200 mg daily starting Jul 13
May chose to STOP Amio in 3-4 months and watch to see when/if AFib recurs
Continue Eliquis
Will arrange follow up when discharge is clear, please let us know and we can assist with that appt
Cardiology will sign off
Impression / Plan
-
Background: 69F with nonobstructive coronary artery disease, hypertension, hyperlipidemia, chronic kidney disease, tachybradycardia syndrome status post pacemaker (Medtronic), and prior CVA presented with weakness and change in mental status after
being found down. She was admitted with sepsis, rhabdo, and DENA. Cardiology was consulted for atrial fibrillation with rapid ventricular response.
Primary Psychological Operations Specialist: Dr. Womack
Atrial fibrillation with rapid ventricular response, resolved
-Patient converted to normal sinus rhythm with IV Amio drip on 07/06/2024.
-Start amiodarone 400 mg twice daily for loading. Switch to 200 mg daily after 1 week. She may be able to be taken off this eventually as I suspect her atrial fibrillation was triggered by rhabdo and DNEA.
-Low BPs preclude rate control at this time
-Oral Anticoagulation: Start apixaban 5 mg twice daily (riojas ok given that plan is for long-term care)
-[id number]: score at least 6 (HTN, prior Stroke/TIA, Vascular disease, age 65-74, female gender)
Amio 400 bid through Jul 12
Amio 200 mg daily starting Jul 13
May chose to STOP Amio in 3-4 months and watch to see when/if AFib recurs
Continue Eliquis
Tachybradycardia syndrome status post Medtronic PPM (10/2022)
-no malignant arrhythmia seen on [facility]
Septic shock, in the setting of UTI, resolved
DENA on CKD3a => Improving, nephrology following
Hypertension, now hypotensive
-add back agents when bp rises. Give renal dysfunction may consider alternative regimen.
Dyslipidemia, given her prior CVA and nonobstructive CAD, statin is recommended, initiate after status improves
Nonobstructive coronary artery disease, stable without chest pain
Prior right parietal stroke
Subjective: Pleasant not clearly oriented. Denies CP/Dyspnea.
Physical Exam
Vital Signs/Labs
Vital Signs
Temp Pulse Resp BP Pulse Ox
98.3 F 91 17 125/62 96
07/08/24 03:00 07/08/24 05:00 07/08/24 05:00 07/08/24 04:00 07/08/24 05:00
07/07/24 07/08/24 07/09/24
06:59 06:59 06:59
Actual Weight 89.5 kg 91.4 kg
07/08/24 04:32
07/08/24 04:32
APTT Cancelled 07/06/24 13:30
Magnesium 1.6 mg/dl (1.6-2.3) 07/06/24 05:57
07/04/24
16:11
Etc-P-Ptfetygyspu Pept 7420
Physical Exam
Constitutional: No acute distress
Cardiovascular: Rhythm & rate is regular, Pedal edema is absent, JVD pressure is normal, Systolic murmur absent and Diastolic murmur absent
Respiratory: Respiratory effort normal, Lungs clear to auscul., Wheeze Absent, Crackles Absent and Rhonchi Absent
Neuro/Psych: AO x 3
Data Reviewed
-
Date of Service: July 08, 2024
Medical Decision Making: Review of Case with other Provider (Dr Vera: will sign off amio load instructions in note)
EKG: Other (tele nsr)
[2024-07-08] MEDS: NSS 1000 IV (09:34)
[2024-07-08] MEDS: ELIQUIS 5 MG PO ×2 (09:38→19:52)
[2024-07-08] MEDS: PACERONE 400 MG PO ×2 (09:38→19:52)
[2024-07-08] MEDS: MYCOSTATIN ORAL SUSPENSION 5 ML PO ×4 (09:38→19:52)
[2024-07-08] MEDS: VISBIOME 1 CAP PO (09:38)
[2024-07-08 10:31] LABS: Magnesium 1.5 mg/dl (1.6-2.3)
--- NOTE | 2024-07-08 10:50 | WOUNDNOTE ---
PERIANAL/BUTTOCKS (L SIDE)
--- NOTE | 2024-07-08 11:00 | WOUNDNOTE ---
WOC RN note: Patient's abdominal/groin/buttocks/sameera ulcers improved with less necrotic tissue. PT Janet and PT assist Grayson assisted patient in chair with air chair cushion. Heel foam dressings changed. Heels blanchable red. R lateral heel with small
abrasion (not new). t/c SPD and ordered a bariatric air chair cushion. Will request order to limit sitting to 2 hrs bid with air chair cushion d/t buttocks ulcers, FMS currently in use. Will also request Santyl daily prn necrotic tissue for buttocks
ulcers. Instructed patient pressure injury prevention measures. 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 Patient has a [facility] air bed. Will follow as needed.
[2024-07-08] MEDS: MAGNESIUM SULFATE 50 IV (14:08)
--- NOTE | 2024-07-08 17:50 | PTCARENOTE ---
Medicated with ROxycodone pre WOC visit and PT to get OOB- up and just tolerated for 2 hours then screaming in pain. Whole sameera area/ groin abdominal folds inner thighs with painful open and weeping wounds. Medicated with Amrita x1 today. Once in
bed she was ok. Appetite poor- encouraging increased po food intake- she is drinking plenty. Fecal management system patent- sent specimen today as ordered. Khoury patent as well- cleansed per protocol.
--- NOTE | 2024-07-08 18:40 | W.PN.NEPH.PH ---
Today's Communication / Plan
-
IVF cont
Assessment/Plan
-
Assessment
DENA
Hyperkalemia
Metabolic acidosis
Azotemia
Lactic acidosis
Hypotension
Atrial fibrillation
Mental status change
History of stroke
Elevated LFTs
Elevated CPK
Plan
Continue IV fluids, NSS
Maintain Cortes catheter for now
Serial BMP
Empiric antibiotics per primary team
Renal function improved 2.8 cr with IVF
-
-
Date of Service: July 08, 2024
CC / HPI / ROS
-
Chief Complaint:
DENA
History of Present Illness:
Renal function continues to improve
acidosis improved
K normal now
cortes in place for DENA
Review of Systems:
no CP/SOB
Labs
-
Labs:
WBC 24.0 10^3/uL (4.8-10.8) H 07/08/24 04:32
RBC 3.84 10^6/uL (4.20-5.40) L 07/08/24 04:32
Hgb 12.0 g/dL (12.0-16.0) 07/08/24 04:32
Hct 35.7 % (37.0-47.0) L 07/08/24 04:32
Plt Count 285 10^3/uL (130-400) 07/08/24 04:32
Sodium 143 mmol/L (135-145) 07/08/24 04:32
Potassium 3.9 mmol/L (3.5-5.1) 07/08/24 04:32
Chloride 113 mmol/L (98-107) H 07/08/24 04:32
Carbon Dioxide 23 mmol/L (22-30) 07/08/24 04:32
BUN 78 mg/dl (7-17) H 07/08/24 04:32
Creatinine 2.8 mg/dL (0.6-1.0) H 07/08/24 04:32
eGFR 17.62 07/08/24 04:32
Glucose 88 mg/dl (70-99) 07/08/24 04:32
Calcium 7.6 mg/dl (8.4-10.2) L 07/08/24 04:32
Phosphorus 3.9 mg/dl (2.5-4.5) 07/06/24 05:57
Noa-K-Atvdhywummt Pept 7420 pg/ml 07/04/24 16:11
Albumin 2.5 g/dl (3.5-5.0) L 07/05/24 06:33
Physical Exam
-
Vital Signs:
Vital Signs
Temp Pulse Resp BP Pulse Ox
98.1 F 85 14 135/50 95
07/08/24 15:27 07/08/24 17:00 07/08/24 17:00 07/08/24 14:00 07/08/24 17:00
Cardiovascular:: Regular rate and rhythm
Respiratory:: Bilateral: Coarse
Lung Excursion:: Normal
Abdomen:: Nontender and Soft
Bowel Sounds:: Normal
Extremity Edema:: None: Bilateral:
[2024-07-08] MEDS: NSS IV (20:14)
[2024-07-09] VITALS (10 sets, daily range): BP systolic 125–143; BP diastolic 62–82; BMI 35.5
[2024-07-09] MEDS: NSS 1000 IV ×2 (01:33→17:45)
[2024-07-09] MEDS: ROXICODONE 5 MG PO ×2 (04:07→11:31)
[2024-07-09] MEDS: SANTYL OINTMENT 1 APPLIC TOPICAL (04:07)
[2024-07-09] MEDS: ZOSYN 50 IV ×2 (04:07→09:23)
[2024-07-09 05:25] LABS: Hematocrit 35.8 % (37.0-47.0); Hemoglobin 11.3 g/dL (12.0-16.0); Mean Corp Hgb Conc. 31.6 g/dL (33.0-37.0); Mean Corpuscular Hgb 30.1 pg (27.0-31.0); Mean Corpuscular Volume 95.2 fL (81.0-99.0); Mean Platelet Volume 11.2 fL (7.4-10.4); Platelet Count 257 10^3/uL (130-400); Red Blood Cell Count 3.76 10^6/uL (4.20-5.40); Red Cell Dist. Width 15.4 % (11.5-14.5)
[2024-07-09 05:35] LABS: ALT (SGPT) 18 U/L (0-35); AST (SGOT) 24 U/L (14-36); Albumin 1.9 g/dl (3.5-5.0); Alkaline Phosphatase 119 U/L (38-126); Blood Urea Nitrogen 62 mg/dl (7-17); Calcium 7.6 mg/dl (8.4-10.2); Carbon Dioxide 22 mmol/L (22-30); Chloride 110 mmol/L (98-107); Estimated Creatinine Clearance 25 ml/min; Glucose 106 mg/dl (70-99); Potassium 3.7 mmol/L (3.5-5.1); Sodium 140 mmol/L (135-145); Total Bilirubin 0.4 mg/dl (0.2-1.3); Total Protein 4.5 g/dl (6.3-8.2); eGFR 22.31
--- NOTE | 2024-07-09 06:37 | PTCARENOTE ---
Patient hesitant with turns and care overnight. Pre medicated for wound care with oxycodone and patient screamed when touched and begged nursing staff to 'leave her alone.' Emotional support provided. Wound care completed as ordered.
--- NOTE | 2024-07-09 07:54 | W.PN.HOSP.TC ---
Today's Communication/Plan
-
IV Zosyn, follow up final cultures
cortes; fecal management system given wounds
retest C. Diff
IVF
oral amiodarone and Eliquis
PT/OT - eventual SNF
Assessment / Plan
Assessment / Plan
69-year-old woman with past medical history of hypertension and prior stroke who presents with weakness. Patient was unable to provide additional history. She was last seen by her family 6 days ago. Patient was found sitting on the couch covered
in urine and feces. It is unclear how long she had been on the couch. Severe skin excoriation on groin folds and under breasts. She was found to have acute renal failure, UTI and new afib.
Abdomen/Pelvis CT
IMPRESSION:
1). There is no evidence of acute pathology
2). 2 cm right adrenal adenoma
3). Cholecystectomy
4). Multilevel lumbar degenerative disc disease
HEAD CT
IMPRESSION:
There are no acute intracranial abnormalities.
There is old a 3.5 cm cm right parietal white matter infarct
There is old 3 cm right frontal convexity infarct
There is old 3 mm lacunar infarct in the anterior aspect of the right thalamus
There is mild diffuse cortical atrophy with mild nonspecific white matter changes as described above.
CXR
IMPRESSION:
No active cardiopulmonary disease.
Acute Renal Failure
Hyperkalemia
Rhabdomyolysis- nontraumatic
-creatinine 16 on admission with BUN 167, K+ 5.9
-s/p sodium bicarb, now receiving NS; creatinine and BUN continuing to downtrend daily
-CK improved
-appreciate Renal
-holding lisinopril-HCTZ now and at discharge
Severe Sepsis 2/2 Urinary Tract Infection versus cellulitis surrounding multiple wounds
-flu and covid negative
-lactic acidosis resolved
-patient broadened from IV Ceftriaxone to IV Zosyn on 07/07 given persistent leukocytosis and possible contribution from cellulitis from severe wounds
-07/09: *patient remains with leukocytosis WBC 25, no fevers or signs of worsening infection. suspect this is stress response from multiple wounds. I am repeating C. Diff testing given loose stools
TME 2/2 acute renal failure and sepsis
-patient's mentation improving daily. Updated daughter this morning who agrees, able to hold more conversation
-seems to be resolved
Tachy-Boogie Syndrome s/p Permanent Pacemaker
Atrial Fibrillation with RVR
-overnight 07/05-07/06 amiodarone initiated for increased HR's, patient converted to sinus
-appreciate Cardiology
-patient started on Eliquis and oral amiodarone: Amio 400 bid through Jul 12; Amio 200 mg daily starting Jul 13
Ambulatory Dysfunction, significant weakness
-PT/OT --> eventual SNF
-pain control for wounds pre-PT
Transaminitis in setting of sepsis/dehydration
-resolved with mildly elevated AST related to muscle
Diarrhea
-C. Diff and norovirus negative; will also check stool culture, ova and parasites given persistence
-start probiotics
Skin Breakdown involving breast, abdomen and groin folds
#...multiple incontinent associated skin damage wounds on
#...posterior thighs/ischium/groin/abdomen/perineum/sacrum/buttocks and gluteal cleft.
appreciate wound care consult
continue pain control
-continue cortes and fecal management system
Moderate Protein Calorie Malnutrition of chronic illness
-appreciate dietary
Hx Right Parietal Stroke
Eliquis as above
DVT proph: Eliquis
Code Status: Full Code
51 minutes spent on patient care
Anticipated Discharge: 24 - 48 hours
Subjective/Interval History
-
Date of Service: July 09, 2024
was sitting in chair yesterday
no new complaints
continues to have fecal management system in
Objective Data
-
Labs:
Laboratory Results
07/09/24
04:39
WBC 25.0 H
Hgb 11.3 L
Hct 35.8 L
Plt Count 257
Sodium 140
Potassium 3.7
Chloride 110 H
Carbon Dioxide 22
BUN 62 H
Creatinine 2.3 H
Glucose 106 H
Calcium 7.6 L
Total Bilirubin 0.4
AST 24
ALT 18
Alkaline Phosphatase 119
Vital Signs:
Vital Signs
Temp Pulse Resp BP Pulse Ox
98.6 F 82 18 125/65 94
07/09/24 03:31 07/09/24 06:00 07/09/24 06:00 07/09/24 06:00 07/09/24 06:00
I&O
07/08/24 07/09/24 07/10/24
06:59 06:59 06:59
Intake Total 1830 / 1830 3520 / 3520
Output Total 975 / 975 1000 / 1000
Balance 855 / 855 2520 / 2520
Physical Exam
-
General: No Apparent Distress
HEENT: PERRLA
Respiratory: Clear to Auscultation; Negative Wheezes
Cardiac: Irregular Rhythm and Tachycardic
GI: Soft and Nontender
Skin: Warm and Dry; Negative Rash
Neuro: Awake, Alert, Oriented and Other (no focal deficits; remains alert and communicative )
Psych: Calm
Data Reviewed
-
Diagnostic Radiology: Report Reviewed by me
Labs: Labs Reviewed by me
[2024-07-09 08:26] LABS: % Basophils 0.4 % (0-2); % Eosinophils 0.8 % (0-6); % Immature Granulocytes 4.7 % (0-0.5); % Monocytes 4.8 % (1.7-9.3); % Neutrophils 80.3 % (42.2-75.2); Absolute Basophils 0.1 10^3/uL (0-0.2); Absolute Eosinophils 0.2 10^3/uL (0-0.7); Absolute Immature Granulocytes 1.2 10^3/uL (0-0.05); Absolute Lymphocytes 2.2 10^3/uL (1.2-3.4); Absolute Monocytes 1.2 10^3/uL (0.1-0.6); Absolute Neutrophils 20.1 10^3/uL (1.4-6.5); Nucleated Red Blood Cells % 0 %
[2024-07-09] MEDS: PACERONE 400 MG PO ×2 (09:22→20:17)
[2024-07-09] MEDS: MYCOSTATIN ORAL SUSPENSION 5 ML PO ×4 (09:22→22:31)
[2024-07-09] MEDS: VISBIOME 1 CAP PO (09:22)
[2024-07-09] MEDS: ELIQUIS 5 MG PO ×2 (09:22→20:16)
--- NOTE | 2024-07-09 10:01 | CON.ID ---
Consultation
-
Date/Time Consultation Requested: July 09 2024 0931
Date/Time Consultation Performed: July 09, 2024 1000
Requesting Provider: Dr. Griselda Vera
Performing Provider: Dr. Kay Benjamin
Reason for Consultation: Leukocytosis
Chief Complaint / Past History
Chief Complaint
Weakness
History of Present Illness
69-year-old female with history of CVA, hypertension, pacemaker placement who was brought to the hospital on July 04 when she was found minimally responsive on the couch sitting in urine and feces. She was down for 4 probably 6 days. White
count 24.5. She was in acute renal failure which is now improving with fluid hydration. LFTs were elevated which are now resolved. She was in rhabdomyolysis. Patient also with new atrial fibrillation with RVR currently on Eliquis and amiodarone.
She has multiple decubiti including sacrum, abdominal pannus, bilateral groin. Urine culture grew E. coli and procidentia. Wound culture polymicrobial organisms. She is currently on Zosyn with persistent leukocytosis. + diarrhea. C. dif neg,
norovirus neg. Patient cannot recall what happened at home. She denies prior fevers or chills. Denies urinary symptoms. No nausea or vomiting. No cough or shortness of breath. No chest pain. No ill contacts.
Past History
Additional Past Medical History:
HTN
CVA
Tachy-claire syndrome s/p PPM
HLD
Cholecystectomy
Bilateral TKR
Allergy History:
No Known Allergies Allergy (Verified 07/04/24 16:29)
Medications Reviewed: Yes
Current Antibiotics:
Ceftriaxone x 3 doses -> Zosyn (d3)
Social History
Tobacco: Non-Smoker
Alcohol: None
Drug: None
Living: Alone
Family History
Family History: Not Pertinent
Review of Systems
Review of Systems
General: Negative Fever or Chills
HEENT: Negative Stiff Neck, Sinus Problems, Headache or Pharyngitis
Cardiovascular: Negative Chest Pain
Respiratory: Negative Dyspnea or Cough
Gasteroenterology: Diarrhea; Negative Nausea or Vomiting
Genital / Urological: Negative Dysuria or Flank Pain
Endocrine: Weakness
Musculoskeletal: Negative Arthralgias
Skin / Hair / Nails: Negative Rash
Neurological: Negative Dizziness
All systems: All other systems were reviewed and were negative
Vital Signs
Temp Pulse Resp BP Pulse Ox
98.0 F 82 18 125/65 94
07/09/24 07:34 07/09/24 06:00 07/09/24 06:00 07/09/24 06:00 07/09/24 06:00
Physical Exam
Physical Exam
Constitutional: Comfortable, Non-toxic and Obese
Head: Other (No frontal or maxillary tenderness)
Eyes: No Conjunctival Hemorrhage and Sclera Anicteric
Cardiovascular: Regular Rate, S1/S2 and Other (PPM site no erythema/induration)
Pulmonary: Clear
Gastrointestinal: Soft, Non Tender, Non Distended, Normal Bowel Sounds, Decreased Bowel Sounds and Other (FMS liquid brown stool)
Extremities: Edema; Negative Erythema
Musculoskeletal: Other (Bilateral knees without effsuion/erythema/warmth)
Wound: Other (Reviewed wound photos from 07/05 and 07/08. Sacral large ulcer much improved from 07/05 clean with areas of dark brown necrosis, no surrounding erytehma. Bilateral groin and panus wounds with pink granulation tissue, dry. )
Neurological: AO x 3
Psychological: Calm
Lab / Diagnostic Study Results
07/09/24 04:39
07/09/24 04:39
Abs Immat Gran (auto) 1.2 10^3/uL (0-0.05) H 07/09/24 04:39
Absolute Neuts (auto) 20.1 10^3/uL (1.4-6.5) H 07/09/24 04:39
Absolute Lymphs (auto) 2.2 10^3/uL (1.2-3.4) 07/09/24 04:39
Absolute Monos (auto) 1.2 10^3/uL (0.1-0.6) H 07/09/24 04:39
Absolute Basos (auto) 0.1 10^3/uL (0-0.2) 07/09/24 04:39
Immature Gran % 4.7 % (0-0.5) H 07/09/24 04:39
Neutrophils % 80.3 % (42.2-75.2) H 07/09/24 04:39
Lymphocytes % 9.0 % (20.5-51.1) L 07/09/24 04:39
Monocytes % 4.8 % (1.7-9.3) 07/09/24 04:39
Eosinophils % 0.8 % (0-6) 07/09/24 04:39
Basophils % 0.4 % (0-2) 07/09/24 04:39
Lactic Acid Cancelled 07/05/24 20:00
Ur Squamous Epith Cells 0-2 /LPF (Few) 07/04/24 16:11
Microbiology Results
Micro:
07/09/24 09:37 C. difficile GDH Antigen & Toxins - Pending
Feces/Stool
07/04/24 18:46 Blood Culture - Preliminary
Blood/Venous No Growth in 4 days- Final report to follow
07/04/24 18:46 Blood Culture - Preliminary
Blood/Venous No Growth in 4 days- Final report to follow
07/08/24 12:52 Cryptosporidium/Giardia - Final
Feces/Stool Negative for Cryptosporidium and/or Giardia Lamblia
antigens.
07/08/24 12:52 Salmonella/Shigella Culture - Pending
Feces/Stool Campylobacter Culture - Pending
Shiga Toxin Test - Pending
07/04/24 16:11 Urine Culture - Final
Urine Escherichia coli
Providencia rettgeri
07/04/24 16:29 Wound Culture - Preliminary
Decubitis Ulcer Escherichia coli
Proteus species
Group F Streptococcus
Gram Stain - Preliminary
07/04/24 22:07 MRSA Screen - Final
Nose No Methicillin Resistant Staphylococcus aureus isolated.
07/05/24 08:22 C. difficile GDH Antigen & Toxins - Final
Feces/Stool Negative for toxigenic C.difficile
- Final
Negative for Norovirus GI and GII.
07/04/24 16:11 Influenza Types A & B (ASHELY) - Final
Nasal Swab Negative for Influenza A & B, NAAT
Negative results must be combined with clinical observations
and patient history.
Nucleic Acid Amplification test (NAAT)performed on the
[employer] platform.
07/04/24 CT a/p: There is no evidence of acute pathology
07/04/[address]: There are no acute intracranial abnormalities.
There is old a 3.5 cm cm right parietal white matter infarct
There is old 3 cm right frontal convexity infarct
There is old 3 mm lacunar infarct in the anterior aspect of the right thalamus
07/04/24 CXR: No active cardiopulmonary disease.
Assessment / Plan
# Persistent leukocytosis
- 2022 wbc normal. no available data for 2023.
-unclear etiology at this time
- Afebrile. CXR neg. CT a/p no acute pathology. Bcx's negative. C. diff neg.
- Check BLE periph US to r/o DVT; pt was found on couch for 6 days.
# E. coli, Providentia uncomplicated UTI
- no upper urinary tract involvement.
- Currently on day 6 effective abx which is sufficient. Can dc abx.
# Sacral decubitus
- Cx was polymicrobial stool sandhya
- Wounds without active infection
- DC abx
- Continue wound care and off-loading
# Abx-associated diarrhea
-neg c. diff.
-neg norovirus
# Pre-renal DENA
-resolving with hydration
# New onset Afib
-On amiodarone and Eliquis as per cardiology.
# Conditions [employer]
HTN
CVA
Tachy-claire syndrome s/p PPM
HLD
Cholecystectomy
Bilateral TKR
--- NOTE | 2024-07-09 10:01 | W.PN.NEPH.PH ---
Today's Communication / Plan
-
follow BMP
Assessment/Plan
-
Assessment
DENA
Hyperkalemia
Metabolic acidosis
Azotemia
Lactic acidosis
Hypotension
Atrial fibrillation
Mental status change
History of stroke
Elevated LFTs
Elevated CPK
Plan
cap IVF
encourage po intake
ok for voiding trial from renal perspective, but cortes in for decub ulcers
follow BMP
abx per primary team for cellulitis
-
-
Date of Service: July 09, 2024
CC / HPI / ROS
-
Chief Complaint:
DENA
History of Present Illness:
DENA/Cr down to 2.3
acidosis stable
K normal now, but drifting down
cortes in place for DENA
Review of Systems:
no CP/SOB
Labs
-
Labs:
WBC 25.0 10^3/uL (4.8-10.8) H 07/09/24 04:39
RBC 3.76 10^6/uL (4.20-5.40) L 07/09/24 04:39
Hgb 11.3 g/dL (12.0-16.0) L 07/09/24 04:39
Hct 35.8 % (37.0-47.0) L 07/09/24 04:39
Plt Count 257 10^3/uL (130-400) 07/09/24 04:39
Sodium 140 mmol/L (135-145) 07/09/24 04:39
Potassium 3.7 mmol/L (3.5-5.1) 07/09/24 04:39
Chloride 110 mmol/L (98-107) H 07/09/24 04:39
Carbon Dioxide 22 mmol/L (22-30) 07/09/24 04:39
BUN 62 mg/dl (7-17) H 07/09/24 04:39
Creatinine 2.3 mg/dL (0.6-1.0) H 07/09/24 04:39
eGFR 22.31 07/09/24 04:39
Glucose 106 mg/dl (70-99) H 07/09/24 04:39
Calcium 7.6 mg/dl (8.4-10.2) L 07/09/24 04:39
Phosphorus 3.9 mg/dl (2.5-4.5) 07/06/24 05:57
Nyo-O-Yyjqevakeed Pept 7420 pg/ml 07/04/24 16:11
Albumin 1.9 g/dl (3.5-5.0) L 07/09/24 04:39
Physical Exam
-
Vital Signs:
Vital Signs
Temp Pulse Resp BP Pulse Ox
98.0 F 82 18 125/65 94
07/09/24 07:34 07/09/24 06:00 07/09/24 06:00 07/09/24 06:00 07/09/24 06:00
Cardiovascular:: Regular rate and rhythm
Respiratory:: Bilateral: Coarse
Lung Excursion:: Normal
Abdomen:: Nontender and Soft
Bowel Sounds:: Normal
Extremity Edema:: +1: Bilateral:
--- NOTE | 2024-07-09 11:28 | CM ---
Patient daughter in room and requested referrals to [facility] [employer] [facility] and [facility] for SNF STC. CM will send referrals via all scripts. CM will continue to follow for discharge planning needs.
Plan; SNF
--- NOTE | 2024-07-09 18:38 | PTCARENOTE ---
US study completed today, then got oob to recliner chair- approx 1 hour out- Asst 2 and MUCH ENCOURAGEMENT required. Appetite poor, encourage better nutrition- ensure ordered today- still did not drink much. Khoury and Fecal management system in
place/ flushed per protocol. PRN Amrita given x1 this shift prior to moving. Wound care completed by steward/stewardess night- intact all day.
--- NOTE | 2024-07-09 20:37 | PTCARENOTE ---
Pt received from aaron RN. Pt AAOx3. Pt verbalizing her needs. Khoury draining yellow urine. FMS remains in use, liquid stool draining, light brown in color. pt on tele, paced rhythm. Pt assisted with HS oral care. NS running at 100 ml/hr. Call
light in reach. Assessment as documented.
--- NOTE | 2024-07-09 23:40 | PTCARENOTE ---
Pt transported to room 2132, by PCT and this RN. report given to ROMARIO Alcocer.
[2024-07-10] VITALS (7 sets, daily range): BP systolic 133–161; BP diastolic 73–85; BMI 35.8
[2024-07-10] MEDS: NSS 1000 IV (03:29)
[2024-07-10] MEDS: PACERONE 400 MG PO ×2 (08:04→20:01)
[2024-07-10] MEDS: MYCOSTATIN ORAL SUSPENSION 5 ML PO ×4 (08:04→21:22)
[2024-07-10] MEDS: ELIQUIS 5 MG PO ×2 (08:04→20:00)
[2024-07-10] MEDS: VISBIOME 1 CAP PO (08:04)
--- NOTE | 2024-07-10 08:14 | W.PN.HOSP.TC ---
Today's Communication/Plan
-
plan for SNF on Friday
awaiting AM labs
Assessment / Plan
Assessment / Plan
69-year-old woman with past medical history of hypertension and prior stroke who presents with weakness. Patient was unable to provide additional history. She was last seen by her family 6 days ago. Patient was found sitting on the couch covered
in urine and feces. It is unclear how long she had been on the couch. Severe skin excoriation on groin folds and under breasts. She was found to have acute renal failure, UTI and new afib.
Abdomen/Pelvis CT
IMPRESSION:
1). There is no evidence of acute pathology
2). 2 cm right adrenal adenoma
3). Cholecystectomy
4). Multilevel lumbar degenerative disc disease
HEAD CT
IMPRESSION:
There are no acute intracranial abnormalities.
There is old a 3.5 cm cm right parietal white matter infarct
There is old 3 cm right frontal convexity infarct
There is old 3 mm lacunar infarct in the anterior aspect of the right thalamus
There is mild diffuse cortical atrophy with mild nonspecific white matter changes as described above.
CXR
IMPRESSION:
No active cardiopulmonary disease.
Acute Renal Failure
Hyperkalemia
Rhabdomyolysis- nontraumatic
-creatinine 16 on admission with BUN 167, K+ 5.9
-s/p sodium bicarb, followed by NS; creatinine and BUN continuing to downtrend daily - awaiting AM labs
-CK improved
-appreciate Renal
-holding lisinopril-HCTZ now and at discharge
Severe Sepsis 2/2 Urinary Tract Infection versus cellulitis surrounding multiple wounds
-flu and covid negative
-lactic acidosis resolved
-patient broadened from IV Ceftriaxone to IV Zosyn on 07/07 given persistent leukocytosis and possible contribution from cellulitis from severe wounds
-07/09: *patient remains with leukocytosis WBC 25, no fevers or signs of worsening infection. suspect this is stress response from multiple wounds. Repeat C. Diff negative
-ID consulted on 07/09 - appreciate evaluation - s/p sufficient treatment of UTI; further antibiotics stopped - no e/o continued infection
TME 2/2 acute renal failure and sepsis
-patient's mentation improving daily. Updated daughter this morning who agrees, able to hold more conversation
-seems to be resolved
Tachy-Boogie Syndrome s/p Permanent Pacemaker
Atrial Fibrillation with RVR
-overnight 07/05-07/06 amiodarone initiated for increased HR's, patient converted to sinus
-appreciate Cardiology
-patient started on Eliquis and oral amiodarone: Amio 400 bid through Jul 12; Amio 200 mg daily starting Jul 13
Ambulatory Dysfunction, significant weakness
-PT/OT --> eventual SNF
-pain control for wounds pre-PT
Transaminitis in setting of sepsis/dehydration
-resolved with mildly elevated AST related to muscle
Diarrhea
-C. Diff neg x 2; norovirus neg; follow up further stool testing
-started probiotics
Skin Breakdown involving breast, abdomen and groin folds
#...multiple incontinent associated skin damage wounds on
#...posterior thighs/ischium/groin/abdomen/perineum/sacrum/buttocks and gluteal cleft.
appreciate wound care consult
continue pain control
-continue cortes and fecal management system
Moderate Protein Calorie Malnutrition of chronic illness
-appreciate dietary
Hx Right Parietal Stroke
Eliquis as above
DVT proph: Eliquis
Code Status: Full Code
51 minutes spent on patient care
Anticipated Discharge: 24 - 48 hours
Subjective/Interval History
-
Date of Service: July 10, 2024
no new complaints
waiting for breakfast
Objective Data
-
Labs:
Laboratory Results
07/10/24
07:34
WBC Pending
Hgb Pending
Hct Pending
Plt Count Pending
Sodium Pending
Potassium Pending
Chloride Pending
Carbon Dioxide Pending
BUN Pending
Creatinine Pending
Glucose Pending
Calcium Pending
Vital Signs:
Vital Signs
Temp Pulse Resp BP Pulse Ox
97.8 F 78 16 144/80 98
07/10/24 03:55 07/10/24 08:04 07/10/24 03:55 07/10/24 08:04 07/10/24 03:55
I&O
07/09/24 07/10/24 07/11/24
06:59 06:59 06:59
Intake Total 4320 / 4320 240 / 240 480 / 480
Output Total 1000 / 1000 550 / 550 150 / 150
Balance 3320 / 3320 -310 / -310 330 / 330
Review of Systems
-
History Source: Patient
All other systems: Reviewed and negative
Physical Exam
-
General: No Apparent Distress
HEENT: PERRLA
Respiratory: Clear to Auscultation; Negative Wheezes
Cardiac: Irregular Rhythm and Tachycardic
GI: Soft and Nontender
Skin: Warm and Dry; Negative Rash
Neuro: Awake, Alert, Oriented and Other (no focal deficits; remains alert and communicative )
Psych: Calm
Data Reviewed
-
Diagnostic Radiology: Report Reviewed by me
Labs: Labs Reviewed by me
[2024-07-10 08:24] LABS: Hematocrit 33.8 % (37.0-47.0); Hemoglobin 11.2 g/dL (12.0-16.0); Mean Corp Hgb Conc. 33.1 g/dL (33.0-37.0); Mean Corpuscular Hgb 30.8 pg (27.0-31.0); Mean Corpuscular Volume 92.9 fL (81.0-99.0); Mean Platelet Volume 11.7 fL (7.4-10.4); Platelet Count 259 10^3/uL (130-400); Red Blood Cell Count 3.64 10^6/uL (4.20-5.40); Red Cell Dist. Width 15.2 % (11.5-14.5); White Blood Cell Count 20.8 10^3/uL (4.8-10.8)
[2024-07-10 08:31] LABS: Blood Urea Nitrogen 48 mg/dl (7-17); Calcium 7.8 mg/dl (8.4-10.2); Carbon Dioxide 22 mmol/L (22-30); Chloride 111 mmol/L (98-107); Estimated Creatinine Clearance 29 ml/min; Glucose 95 mg/dl (70-99); Potassium 3.5 mmol/L (3.5-5.1); Sodium 138 mmol/L (135-145); eGFR 26.38
[2024-07-10] MEDS: NSS IV (08:40)
--- NOTE | 2024-07-10 11:20 | W.PN.NEPH.PH ---
Today's Communication / Plan
-
K
Assessment/Plan
-
Assessment
DENA
Hyperkalemia
Metabolic acidosis
Azotemia
Lactic acidosis
Hypotension
Atrial fibrillation
Mental status change
History of stroke
Elevated LFTs
Elevated CPK
Plan
encourage po intake
ok for voiding trial from renal perspective, but cortes in for decub ulcers
follow BMP
abx per primary team for cellulitis
Additional potassium today
-
-
Date of Service: July 10, 2024
CC / HPI / ROS
-
Chief Complaint:
DENA
History of Present Illness:
DENA/Cr down to 2.3
acidosis stable
WBC improving
K normal now, but drifting down
cortes in place for DENA
Review of Systems:
no CP/SOB
Labs
-
Labs:
WBC 20.8 10^3/uL (4.8-10.8) H 07/10/24 07:34
RBC 3.64 10^6/uL (4.20-5.40) L 07/10/24 07:34
Hgb 11.2 g/dL (12.0-16.0) L 07/10/24 07:34
Hct 33.8 % (37.0-47.0) L 07/10/24 07:34
Plt Count 259 10^3/uL (130-400) 07/10/24 07:34
Sodium 138 mmol/L (135-145) 07/10/24 07:34
Potassium 3.5 mmol/L (3.5-5.1) 07/10/24 07:34
Chloride 111 mmol/L (98-107) H 07/10/24 07:34
Carbon Dioxide 22 mmol/L (22-30) 07/10/24 07:34
BUN 48 mg/dl (7-17) H 07/10/24 07:34
Creatinine 2.0 mg/dL (0.6-1.0) H 07/10/24 07:34
eGFR 26.38 07/10/24 07:34
Glucose 95 mg/dl (70-99) 07/10/24 07:34
Calcium 7.8 mg/dl (8.4-10.2) L 07/10/24 07:34
Phosphorus 3.9 mg/dl (2.5-4.5) 07/06/24 05:57
Oek-P-Cbzedhuhopz Pept 7420 pg/ml 07/04/24 16:11
Albumin 1.9 g/dl (3.5-5.0) L 07/09/24 04:39
Physical Exam
-
Vital Signs:
Vital Signs
Temp Pulse Resp BP Pulse Ox
97.7 F 78 17 144/80 96
07/10/24 07:14 07/10/24 08:04 07/10/24 07:14 07/10/24 08:04 07/10/24 10:05
Cardiovascular:: Regular rate and rhythm
Respiratory:: Bilateral: CTA
Lung Excursion:: Normal
Abdomen:: Nontender and Soft
Bowel Sounds:: Normal
Extremity Edema:: +1: Bilateral:
[2024-07-10] MEDS: KLOR-CON 40 MEQ PO (12:13)
--- NOTE | 2024-07-10 12:25 | W.PN.ID1 ---
Date of Service
Date of Service: July 10, 2024
Today's Communication
Observe off abx.
Assessment / Plan
# Persistent leukocytosis - improved today
- 2022 wbc normal. no available data for 2023.
-unclear etiology at this time; can be due to recent physiological stress
- Afebrile. CXR neg. CT a/p no acute pathology. Bcx's negative. C. diff neg.
- No DVT
- Observe off abx.
# E. coli, [employer] uncomplicated UTI
- no upper urinary tract involvement.
-s/p day 6 effective abx
# Sacral decubitus
- Cx was polymicrobial stool sandhya
- Wounds without active infection
- Continue wound care and off-loading
# Abx-associated diarrhea
-neg c. diff.
-neg norovirus
# Pre-renal DENA
-resolving with hydration
# New onset Afib
-On amiodarone and Eliquis as per cardiology.
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
HTN
CVA
Tachy-claire syndrome s/p PPM
HLD
Cholecystectomy
Bilateral TKR
Chief Complaint
-: Leukocytosis
Subjective / Review of Systems
Feels better today. No new sxs.
Vital Signs / Physical Exam
Vital Signs
Vital Signs
Temp Pulse Resp BP Pulse Ox
97.7 F 80 16 133/73 96
07/10/24 11:22 07/10/24 11:22 07/10/24 11:22 07/10/24 11:22 07/10/24 11:22
Physical Exam
Constitutional: No Acute Distress and Comfortable
Eyes: No Conjunctival Hemorrhage and Sclera Anicteric
Cardiovascular: Regular Rate and S1/S2
Pulmonary: Clear
Gastrointestinal: Soft, Non Tender, Non Distended and Other (FMS: liquid dark stool)
Genito-Urinary: Negative CVA Tenderness
Extremities: Edema
Neurological: AO x 3
Objective Data
Lab Data
Lab Results
07/10/24 07:34
07/10/24 07:34
APTT Cancelled 07/06/24 13:30
Estimated Creat Clear 29 ml/min 07/10/24 07:34
Lactic Acid Cancelled 07/05/24 20:00
Total Bilirubin 0.4 mg/dl (0.2-1.3) 07/09/24 04:39
AST 24 U/L (14-36) 07/09/24 04:39
ALT 18 U/L (0-35) 07/09/24 04:39
Alkaline Phosphatase 119 U/L (38-126) 07/09/24 04:39
Most recent labs reviewed.
Micro Results:
07/08/24 12:52 Salmonella/Shigella Culture - Final
Feces/Stool No Salmonella, Shigella, Aeromonas or Plesiomonas species
isolated.
Campylobacter Culture - Final
No Campylobacter species isolated.
Shiga Toxin Test - Pending
07/04/24 18:46 Blood Culture - Final
Blood/Venous No Growth - Final Report
07/04/24 18:46 Blood Culture - Final
Blood/Venous No Growth - Final Report
07/04/24 16:29 Wound Culture - Final
Decubitis Ulcer Proteus vulgaris
Escherichia coli
Group F Streptococcus
Gram Stain - Final
07/09/24 09:37 C. difficile GDH Antigen & Toxins - Final
Feces/Stool Negative for toxigenic C.difficile
07/08/24 12:52 Cryptosporidium/Giardia - Final
Feces/Stool Negative for Cryptosporidium and/or Giardia Lamblia
antigens.
07/04/24 16:11 Urine Culture - Final
Urine Escherichia coli
Providencia rettgeri
07/04/24 22:07 MRSA Screen - Final
Nose No Methicillin Resistant Staphylococcus aureus isolated.
07/05/24 08:22 C. difficile GDH Antigen & Toxins - Final
Feces/Stool Negative for toxigenic C.difficile
- Final
Negative for Norovirus GI and GII.
07/04/24 16:11 Influenza Types A & B (ASHELY) - Final
Nasal Swab Negative for Influenza A & B, NAAT
Negative results must be combined with clinical observations
and patient history.
Nucleic Acid Amplification test (NAAT)performed on the
[employer] platform.
07/04/24 CT a/p: There is no evidence of acute pathology
07/04/[address]: There are no acute intracranial abnormalities.
There is old a 3.5 cm cm right parietal white matter infarct
There is old 3 cm right frontal convexity infarct
There is old 3 mm lacunar infarct in the anterior aspect of the right thalamus
07/04/24 CXR: No active cardiopulmonary disease.
[2024-07-10] MEDS: ROXICODONE 5 MG PO (14:27)
[2024-07-10] MEDS: SANTYL OINTMENT 1 APPLIC TOPICAL (15:00)
[2024-07-10] MEDS: TYLENOL 650 MG PO (16:26)
[2024-07-10] MEDS: ROXICODONE 2.5 MG PO (20:08)
[2024-07-11 06:00] VITALS: BMI 36.0
[2024-07-11 07:33] LABS: Hematocrit 34.6 % (37.0-47.0); Hemoglobin 11.5 g/dL (12.0-16.0); Mean Corp Hgb Conc. 33.2 g/dL (33.0-37.0); Mean Corpuscular Hgb 31.1 pg (27.0-31.0); Mean Corpuscular Volume 93.5 fL (81.0-99.0); Mean Platelet Volume 11.4 fL (7.4-10.4); Platelet Count 267 10^3/uL (130-400); Red Cell Dist. Width 15.3 % (11.5-14.5); White Blood Cell Count 17.5 10^3/uL (4.8-10.8)
[2024-07-11 07:35] VITALS: BP 153/82
[2024-07-11 07:54] LABS: Blood Urea Nitrogen 42 mg/dl (7-17); Calcium 7.7 mg/dl (8.4-10.2); Carbon Dioxide 22 mmol/L (22-30); Chloride 110 mmol/L (98-107); Estimated Creatinine Clearance 33 ml/min; Glucose 94 mg/dl (70-99); Sodium 140 mmol/L (135-145); eGFR 29.94
--- NOTE | 2024-07-11 08:33 | W.PN.HOSP.TC ---
Today's Communication/Plan
-
dispo planning for SNF
Assessment / Plan
Assessment / Plan
69-year-old woman with past medical history of hypertension and prior stroke who presents with weakness. Patient was unable to provide additional history. She was last seen by her family 6 days ago. Patient was found sitting on the couch covered
in urine and feces. It is unclear how long she had been on the couch. Severe skin excoriation on groin folds and under breasts. She was found to have acute renal failure, UTI and new afib.
Abdomen/Pelvis CT
IMPRESSION:
1). There is no evidence of acute pathology
2). 2 cm right adrenal adenoma
3). Cholecystectomy
4). Multilevel lumbar degenerative disc disease
HEAD CT
IMPRESSION:
There are no acute intracranial abnormalities.
There is old a 3.5 cm cm right parietal white matter infarct
There is old 3 cm right frontal convexity infarct
There is old 3 mm lacunar infarct in the anterior aspect of the right thalamus
There is mild diffuse cortical atrophy with mild nonspecific white matter changes as described above.
CXR
IMPRESSION:
No active cardiopulmonary disease.
Acute Renal Failure
Hyperkalemia
Rhabdomyolysis- nontraumatic
-creatinine 16 on admission with BUN 167, K+ 5.9
-s/p sodium bicarb, followed by NS; creatinine and BUN continuing to downtrend daily
-CK improved
-IVF stopped on 07/09
-appreciate Renal
-holding lisinopril-HCTZ now and at discharge
Severe Sepsis 2/2 Urinary Tract Infection
-flu and covid negative
-lactic acidosis resolved
-patient broadened from IV Ceftriaxone to IV Zosyn on 07/07 given persistent leukocytosis and possible contribution from cellulitis from severe wounds
-07/09: *patient remains with leukocytosis WBC 25, no fevers or signs of worsening infection. suspect this is stress response from multiple wounds. Repeat C. Diff negative; ID consulted
-ID consulted on 07/09 - appreciate evaluation - s/p sufficient treatment of UTI; further antibiotics stopped - no e/o continued infection
-WBC now downtrending
TME 2/2 acute renal failure and sepsis
-patient's mentation improving daily. Updated daughter this morning who agrees, able to hold more conversation
-seems to be resolved although patient also withdrawn in conversation
Skin Breakdown involving breast, abdomen and groin folds
#...multiple incontinent associated skin damage wounds on
#...posterior thighs/ischium/groin/abdomen/perineum/sacrum/buttocks and gluteal cleft.
appreciate wound care consult
continue pain control
-continue cortes and fecal management system to allow wounds to heal
Tachy-Boogie Syndrome s/p Permanent Pacemaker
Atrial Fibrillation with RVR
-overnight 07/05-07/06 amiodarone initiated for increased HR's, patient converted to sinus
-appreciate Cardiology
-patient started on Eliquis and oral amiodarone: Amio 400 bid through Jul 12; Amio 200 mg daily starting Jul 13
Ambulatory Dysfunction, significant weakness
-PT/OT --> eventual SNF
-pain control for wounds pre-PT
-*I updated CM on 07/10 that patient will be ready for SNF on Friday
Transaminitis in setting of sepsis/dehydration
-resolved with mildly elevated AST related to muscle
Diarrhea
-C. Diff neg x 2; norovirus neg; follow up further stool testing
-started probiotics
Moderate Protein Calorie Malnutrition of chronic illness
-appreciate dietary
Hx Right Parietal Stroke
Eliquis as above
DVT proph: Eliquis
Code Status: Full Code
51 minutes spent on patient care
Anticipated Discharge: 24 - 48 hours
Subjective/Interval History
-
Date of Service: July 11, 2024
no complaints this morning
Objective Data
-
Labs:
Laboratory Results
01/26/25
06:55
WBC 17.5 H
Hgb 11.5 L
Hct 34.6 L
Plt Count 267
Sodium 140
Potassium 4.0
Chloride 110 H
Carbon Dioxide 22
BUN 42 H
Creatinine 1.8 H
Glucose 94
Calcium 7.7 L
Vital Signs:
Vital Signs
Temp Pulse Resp BP Pulse Ox
98.0 F 83 16 153/82 98
07/11/24 07:35 07/11/24 07:35 07/11/24 07:35 07/11/24 07:35 07/11/24 07:35
I&O
07/10/24 07/11/24 07/12/24
06:59 06:59 06:59
Intake Total 240 / 240 1490 / 1490
Output Total 550 / 550 1400 / 1400
Balance -310 / -310 90 / 90
Review of Systems
-
History Source: Patient
All other systems: Reviewed and negative
Physical Exam
-
General: No Apparent Distress
HEENT: PERRLA
Respiratory: Clear to Auscultation; Negative Wheezes
Cardiac: Irregular Rhythm and Tachycardic
GI: Soft and Nontender
Skin: Warm and Dry; Negative Rash
Neuro: Awake, Alert, Oriented and Other (no focal deficits; remains alert and communicative )
Psych: Calm
Data Reviewed
-
Diagnostic Radiology: Report Reviewed by me
Labs: Labs Reviewed by me
[2024-07-11] MEDS: ELIQUIS 5 MG PO ×2 (09:17→20:40)
[2024-07-11] MEDS: PACERONE 400 MG PO ×2 (09:17→20:40)
[2024-07-11] MEDS: MYCOSTATIN ORAL SUSPENSION 5 ML PO ×4 (09:17→21:00)
[2024-07-11] MEDS: VISBIOME 1 CAP PO (09:18)
[2024-07-11] MEDS: ROXICODONE 5 MG PO ×2 (11:03→15:09)
[2024-07-11] MEDS: SANTYL OINTMENT 1 APPLIC TOPICAL (11:05)
--- NOTE | 2024-07-11 11:07 | W.PN.NEPH.PH ---
Today's Communication / Plan
-
follow BMP
Assessment/Plan
-
Assessment
DNEA
Hyperkalemia
Metabolic acidosis
Azotemia
Lactic acidosis
Hypotension
Atrial fibrillation
Mental status change
History of stroke
Elevated LFTs
Elevated CPK
Plan
ok for voiding trial from renal perspective, but crotes in for decub ulcers
follow BMP
abx per primary team for cellulitis
dc planning
-
-
Date of Service: July 11, 2024
CC / HPI / ROS
-
Chief Complaint:
DENA
History of Present Illness:
DENA/Cr down to 1.8
acidosis resolved
WBC improving
K normal
cortes in place for DENA
Review of Systems:
no CP/SOB
Labs
-
Labs:
WBC 17.5 10^3/uL (4.8-10.8) H 07/11/24 06:55
RBC 3.70 10^6/uL (4.20-5.40) L 07/11/24 06:55
Hgb 11.5 g/dL (12.0-16.0) L 07/11/24 06:55
Hct 34.6 % (37.0-47.0) L 07/11/24 06:55
Plt Count 267 10^3/uL (130-400) 07/11/24 06:55
Sodium 140 mmol/L (135-145) 07/11/24 06:55
Potassium 4.0 mmol/L (3.5-5.1) 07/11/24 06:55
Chloride 110 mmol/L (98-107) H 07/11/24 06:55
Carbon Dioxide 22 mmol/L (22-30) 07/11/24 06:55
BUN 42 mg/dl (7-17) H 07/11/24 06:55
Creatinine 1.8 mg/dL (0.6-1.0) H 07/11/24 06:55
eGFR 29.94 07/11/24 06:55
Glucose 94 mg/dl (70-99) 07/11/24 06:55
Calcium 7.7 mg/dl (8.4-10.2) L 07/11/24 06:55
Phosphorus 3.9 mg/dl (2.5-4.5) 07/06/24 05:57
Jrc-W-Mifbphdpysq Pept 7420 pg/ml 07/04/24 16:11
Albumin 1.9 g/dl (3.5-5.0) L 07/09/24 04:39
Physical Exam
-
Vital Signs:
Vital Signs
Temp Pulse Resp BP Pulse Ox
98.0 F 83 16 153/82 98
07/11/24 07:35 07/11/24 09:17 07/11/24 07:35 07/11/24 09:17 07/11/24 07:35
Cardiovascular:: Regular rate and rhythm
Lung Excursion:: Normal
Abdomen:: Nontender and Soft
Bowel Sounds:: Normal
Extremity Edema:: None: Bilateral:
--- NOTE | 2024-07-11 13:14 | W.PN.ID1 ---
Date of Service
Date of Service: July 11, 2024
Today's Communication
Observe off abx.
ID will sign off.
Assessment / Plan
# Leukocytosis continues to trend down.
- Suspect due to recent physiological stress
- Afebrile. CXR neg. CT a/p no acute pathology. Bcx's negative. C. diff x2 neg.
- No DVT
- Observe off abx.
# E. coli, [employer] uncomplicated UTI
- no upper urinary tract involvement.
-s/p day 6 effective abx
# Sacral decubitus
- Cx was polymicrobial stool sandhya
- Wounds without active infection
- Continue wound care and off-loading
# Abx-associated diarrhea
-neg c. diff.
-neg norovirus
# Pre-renal DENA
-resolving with hydration
# New onset Afib
-On amiodarone and Eliquis as per cardiology.
ID will sign off.
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
HTN
CVA
Tachy-claire syndrome s/p PPM
HLD
Cholecystectomy
Bilateral TKR
Chief Complaint
-: Leukocytosis
Subjective / Review of Systems
Feels well.
Vital Signs / Physical Exam
Vital Signs
Vital Signs
Temp Pulse Resp BP Pulse Ox
98.0 F 83 16 153/82 98
07/11/24 07:35 07/11/24 09:17 07/11/24 07:35 07/11/24 09:17 07/11/24 09:30
Physical Exam
Constitutional: No Acute Distress and Comfortable
Eyes: No Conjunctival Hemorrhage and Sclera Anicteric
Cardiovascular: Regular Rate and S1/S2
Pulmonary: Clear
Gastrointestinal: Soft, Non Tender, Non Distended and Other (FMS: liquid dark stool)
Genito-Urinary: Negative CVA Tenderness
Extremities: Edema
Neurological: AO x 3
Objective Data
Lab Data
Lab Results
07/11/24 06:55
07/11/24 06:55
APTT Cancelled 07/06/24 13:30
Estimated Creat Clear 33 ml/min 07/11/24 06:55
Lactic Acid Cancelled 07/05/24 20:00
Total Bilirubin 0.4 mg/dl (0.2-1.3) 07/09/24 04:39
AST 24 U/L (14-36) 07/09/24 04:39
ALT 18 U/L (0-35) 07/09/24 04:39
Alkaline Phosphatase 119 U/L (38-126) 07/09/24 04:39
Most recent labs reviewed.
Micro Results:
07/08/24 12:52 Salmonella/Shigella Culture - Final
Feces/Stool No Salmonella, Shigella, Aeromonas or Plesiomonas species
isolated.
Campylobacter Culture - Final
No Campylobacter species isolated.
Shiga Toxin Test - Pending
07/04/24 18:46 Blood Culture - Final
Blood/Venous No Growth - Final Report
07/04/24 18:46 Blood Culture - Final
Blood/Venous No Growth - Final Report
07/04/24 16:29 Wound Culture - Final
Decubitis Ulcer Proteus vulgaris
Escherichia coli
Group F Streptococcus
Gram Stain - Final
07/09/24 09:37 C. difficile GDH Antigen & Toxins - Final
Feces/Stool Negative for toxigenic C.difficile
07/08/24 12:52 Cryptosporidium/Giardia - Final
Feces/Stool Negative for Cryptosporidium and/or Giardia Lamblia
antigens.
07/04/24 16:11 Urine Culture - Final
Urine Escherichia coli
Providencia rettgeri
07/04/24 22:07 MRSA Screen - Final
Nose No Methicillin Resistant Staphylococcus aureus isolated.
07/05/24 08:22 C. difficile GDH Antigen & Toxins - Final
Feces/Stool Negative for toxigenic C.difficile
- Final
Negative for Norovirus GI and GII.
07/04/24 16:11 Influenza Types A & B (ASHELY) - Final
Nasal Swab Negative for Influenza A & B, NAAT
Negative results must be combined with clinical observations
and patient history.
Nucleic Acid Amplification test (NAAT)performed on the
[employer] platform.
07/04/24 CT a/p: There is no evidence of acute pathology
07/04/[address]: There are no acute intracranial abnormalities.
There is old a 3.5 cm cm right parietal white matter infarct
There is old 3 cm right frontal convexity infarct
There is old 3 mm lacunar infarct in the anterior aspect of the right thalamus
07/04/24 CXR: No active cardiopulmonary disease.
[2024-07-11 15:18] VITALS: BP 136/73
[2024-07-11 23:03] VITALS: BP 153/71
[2024-07-11] MEDS: TYLENOL 650 MG PO (23:08)
[2024-07-12] MEDS: ROXICODONE 5 MG PO ×4 (01:56→20:44)
[2024-07-12 04:32] VITALS: BMI 36.2
[2024-07-12 06:40] LABS: Hemoglobin 10.1 g/dL (12.0-16.0); Mean Corp Hgb Conc. 32.6 g/dL (33.0-37.0); Mean Corpuscular Hgb 30.6 pg (27.0-31.0); Mean Corpuscular Volume 93.9 fL (81.0-99.0); Mean Platelet Volume 11.3 fL (7.4-10.4); Platelet Count 286 10^3/uL (130-400); Red Cell Dist. Width 15.1 % (11.5-14.5); White Blood Cell Count 12.9 10^3/uL (4.8-10.8)
--- NOTE | 2024-07-12 06:42 | PTCARENOTE ---
Pt.'s temp 101.3 at 2300; verified with different thermometer, results 101. Tylenol given, pt. remained afebrile rest of the shift (last 98.1 at 0433).
[2024-07-12 07:03] LABS: Blood Urea Nitrogen 34 mg/dl (7-17); Calcium 7.3 mg/dl (8.4-10.2); Carbon Dioxide 22 mmol/L (22-30); Chloride 109 mmol/L (98-107); Estimated Creatinine Clearance 37 ml/min; Glucose 94 mg/dl (70-99); Sodium 136 mmol/L (135-145); eGFR 34.48
[2024-07-12 07:09] LABS: Potassium 4.1 mmol/L (3.5-5.1)
[2024-07-12 07:10] VITALS: BP 187/93
[2024-07-12] MEDS: ELIQUIS 5 MG PO ×2 (09:09→21:45)
[2024-07-12] MEDS: MYCOSTATIN ORAL SUSPENSION 5 ML PO ×4 (09:09→21:47)
[2024-07-12] MEDS: PACERONE 400 MG PO ×2 (09:09→21:47)
[2024-07-12] MEDS: VISBIOME 1 CAP PO (09:09)
--- NOTE | 2024-07-12 11:14 | CM ---
Spoke with daughter Shanika-no preference in SNF
Bed available at [facility] per Jo-Ann liaison - daughter/patient updated
tt hospitalist
PT/OT to see patient today-once seen will start auth process
IMM explained & signed. In chart
PLAN: [facility] SNF, once auth approved
Report #: [id number]
Fax #: [phone]
transportation forms on chart
[2024-07-12 12:34] VITALS: BP 152/76; BP 189/105; PULSE 83; O2SAT 97
[2024-07-12 12:35] VITALS: BP 152/76; PULSE 83; O2SAT 97
--- NOTE | 2024-07-12 13:06 | CM ---
Patient accepted at [facility] NPI# [id number]
Accepting MD Dr Kim NPI# [id number]
TC to [facility], spoke with Isabel
Pending reference# [id number]
Clinicals faxed to [phone]
[2024-07-12 15:20] VITALS: BP 178/93
--- NOTE | 2024-07-12 15:20 | W.DCSUMMARY ---
Addendum entered and electronically signed by Khadar Benson DO 07/14/24 12:05:
Pt medically stable for dc to snf 07/12/2024, but actually left hospital 07/14/2024.
Original Note:
Discharge Summary
Discharge Data
Date of Admission: 07/04/24
Date of Discharge: 07/12/24
-
Pending Results: No
Hospital Course
Ms. Dexter 69-year-old female with a medical history of right parietal stroke and hypertension who presents with weakness. She lives alone and was found in her home by family covered in urine and feces, unclear how long she had sitting there. She
had multiple skin excoriations in groin area and under her breasts. She was found to have severe acute renal failure with a creatinine of 16 and sepsis secondary to urinary tract infection. She was treated with aggressive IV fluids and
broad-spectrum antibiotics which have now been discontinued. Her renal function appears to be close to baseline now. Her home lisinopril-HCTZ have been discontinued and she should not restart these medications. She has a Khoury catheter in place
due to decubitus ulcers, but is okay for voiding trial from a renal perspective. She continues to receive local wound care. At the time of admission she was found to be in A-fib with RVR. Her heart rate was controlled after starting amiodarone.
She has been started on anticoagulation with Eliquis. She had intermittent diarrhea, however C. difficile and norovirus testing are both negative. She was found to have moderate protein calorie malnutrition and dietary supplements were started.
She was evaluated by PT/OT who worked with her during this hospitalization and recommended SNF at time of discharge for ongoing rehabilitation. She has dramatically clinically improved during this hospitalization and is hemodynamically stable at
the time of hospital discharge. She will be discharged to SNF with prescriptions for amiodarone 200 mg p.o. daily and Eliquis 5 mg p.o. twice daily. She will need outpatient follow-up with cardiology for ongoing management of her A-fib. She will
also need to follow-up with her PCP after hospital discharge.
Gen-AAOx3, NAD
HEENT-NC, AT, anicteric, clear oral mm
Neck-supple
CV-reg, no M, +S1/S2
Lungs-clear B/L
Abd-soft, NT, ND
Musculoskeletal-no edema, no deformity
Skin-warm and dry, bilateral ischial wounds
Neuro-mild dysarthria, no tremor
Psych-calm, cooperative
Discharge Plan
-
Patient Disposition: Long-Term/SNF
Discharge Diagnosis/Procedures: acute renal failure, urinary tract infection, multiple wounds, persistent Leukocytosis
Diet: Regular
Activity: As tolerated
Driving Restrictions: No driving
Bathing Restrictions: None
Blood Work: BMP in 3-5 days
Other Services: PT and OT
Activity Restrictions/Additional Instructions:
Wound Care Instructions
multiple in perineum/thighs/groin/abdomen/buttocks and sacrum:wash open sores with warm water and mild soap. Dusting of fungal powder to periwound followed by skin prep prn red yeasty skin, Santyl ointment as needed for necrotic tissue
sacral/buttocks ulcers,
Apply to all ulcers, Xeroform, ABD pads and large Spandage to secure.
Change daily and prn soilage.
Air mattress
offloading chair cushion
Elevate heels off bed with pillow/s.
increase protein in diet
Follow up at wound care center call for an appointment.
Continue Khoury catheter and fecal management system to allow for wound healing
Ms. Dexter 69-year-old female with a medical history of right parietal stroke and hypertension who presents with weakness. She lives alone and was found in her home by family covered in urine and feces, unclear how long she had sitting there. She
had multiple skin excoriations in groin area and under her breasts. She was found to have severe acute renal failure with a creatinine of 16 and sepsis secondary to urinary tract infection. She was treated with aggressive IV fluids and
broad-spectrum antibiotics which have now been discontinued. Her renal function appears to be close to baseline now. Her home lisinopril-HCTZ have been discontinued and she should not restart these medications. She has a Khoury catheter in place
due to decubitus ulcers, but is okay for voiding trial from a renal perspective. She continues to receive local wound care. At the time of admission she was found to be in A-fib with RVR. Her heart rate was controlled after starting amiodarone.
She has been started on anticoagulation with Eliquis. She had intermittent diarrhea, however C. difficile and norovirus testing are both negative. She was found to have moderate protein calorie malnutrition and dietary supplements were started.
She was evaluated by PT/OT who worked with her during this hospitalization and recommended SNF at time of discharge for ongoing rehabilitation. She has dramatically clinically improved during this hospitalization and is hemodynamically stable at
the time of hospital discharge. She will be discharged to SNF with prescriptions for amiodarone 200 mg p.o. daily and Eliquis 5 mg p.o. twice daily. She will need outpatient follow-up with cardiology for ongoing management of her A-fib. She will
also need to follow-up with her PCP after hospital discharge.
Referrals:
Arsh Gibbons MD [Family Provider] - in less than 1 week
Additional Discharge Medication Instructions: Stop Lisinopril-HCTZ
Amio 400 bid through Jul 12
Amio 200 mg daily starting Jul 13
New Start Eliquis
Prescriptions:
New
amiodarone 200 mg Tablet
200 mg PO DAILY 30 Days Qty: 30 0RF
Eliquis 5 mg Tablet
5 mg PO BID 30 Days Qty: 60 0RF
Discontinued
aspirin 81 mg Tablet,Delayed Release (Dr/Ec)
81 mg PO DAILY
lisinopril-hydrochlorothiazide 20-12.5 mg Tablet
1 tab PO BID
Discharge Orders:
Discharge Patient (As Directed); Ordered 07/12/24
Ordered By: Khadar Benson
Discharge Date and Time
Print Language: TURKMEN
[2024-07-12] MEDS: MYCOSTATIN ORAL SUSPENSION PO (16:18)
--- NOTE | 2024-07-12 17:27 | W.PN.NEPH.PH ---
Today's Communication / Plan
-
follow labs
Assessment/Plan
-
Assessment
DENA
Hyperkalemia
Metabolic acidosis
Azotemia
Lactic acidosis
Hypotension
Atrial fibrillation
Mental status change
History of stroke
Elevated LFTs
Elevated CPK
Plan
ok for voiding trial from renal perspective, but cortes in for decub ulcers
improving cr at 1.6, non oliguric
BPs increasing trend , off ACEI and thiazide, started on low dose Amlodipine per primary
follow BMP
abx per primary team for cellulitis
dc planning
-
-
Date of Service: July 12, 2024
CC / HPI / ROS
-
Chief Complaint:
DENA
History of Present Illness:
DENA/Cr down to 1.6
acidosis resolved
WBC improving
K normal
cortes in place for DENA
Review of Systems:
no CP/SOB
has fecal rectal tube for diarrhea
Labs
-
Labs:
WBC 12.9 10^3/uL (4.8-10.8) H 07/12/24 06:10
RBC 3.30 10^6/uL (4.20-5.40) L 07/12/24 06:10
Hgb 10.1 g/dL (12.0-16.0) L 07/12/24 06:10
Hct 31.0 % (37.0-47.0) L 07/12/24 06:10
Plt Count 286 10^3/uL (130-400) 07/12/24 06:10
Sodium 136 mmol/L (135-145) 07/12/24 06:10
Potassium 4.1 mmol/L (3.5-5.1) 07/12/24 06:10
Chloride 109 mmol/L (98-107) H 07/12/24 06:10
Carbon Dioxide 22 mmol/L (22-30) 07/12/24 06:10
BUN 34 mg/dl (7-17) H 07/12/24 06:10
Creatinine 1.6 mg/dL (0.6-1.0) H 07/12/24 06:10
eGFR 34.48 07/12/24 06:10
Glucose 94 mg/dl (70-99) 07/12/24 06:10
Calcium 7.3 mg/dl (8.4-10.2) L 07/12/24 06:10
Phosphorus 3.9 mg/dl (2.5-4.5) 07/06/24 05:57
Xxt-M-Uiquyjbgipq Pept 7420 pg/ml 07/04/24 16:11
Albumin 1.9 g/dl (3.5-5.0) L 07/09/24 04:39
Physical Exam
-
Vital Signs:
Vital Signs
Temp Pulse Resp BP Pulse Ox
99.0 F 85 16 178/93 97
07/12/24 15:20 07/12/24 15:20 07/12/24 15:20 07/12/24 15:20 07/12/24 15:20
Cardiovascular:: Regular rate and rhythm
Respiratory:: Bilateral: CTA
Lung Excursion:: Normal
Abdomen:: Nontender and Soft
Extremity Edema:: None: Bilateral:
Cortes Catheter: Yes
[2024-07-12] MEDS: NORVASC 2.5 MG PO (18:26)
[2024-07-12 23:08] VITALS: BP 152/72
[2024-07-13 03:20] VITALS: BP 142/76
[2024-07-13] MEDS: ROXICODONE 2.5 MG PO ×2 (05:49→20:11)
[2024-07-13 06:00] VITALS: BMI 36.4
[2024-07-13 07:30] VITALS: BP 155/66
[2024-07-13] MEDS: MYCOSTATIN ORAL SUSPENSION 5 ML PO ×4 (08:52→21:28)
[2024-07-13] MEDS: PACERONE 200 MG PO (08:52)
[2024-07-13] MEDS: ELIQUIS 5 MG PO ×2 (08:52→20:11)
[2024-07-13] MEDS: NORVASC 2.5 MG PO (08:52)
[2024-07-13] MEDS: VISBIOME 1 CAP PO (08:52)
--- NOTE | 2024-07-13 12:17 | CM ---
CM reviewed the chart. Spoke with Marii from [facility] regarding status of auth. Per Marii, in medical review.
--- NOTE | 2024-07-13 13:41 | W.PN.NEPH.PH ---
Today's Communication / Plan
-
d/c plan
Assessment/Plan
-
Assessment
DENA
Hyperkalemia
Metabolic acidosis
Azotemia
Lactic acidosis
Hypotension
Atrial fibrillation
Mental status change
History of stroke
Elevated LFTs
Elevated CPK
Plan
DENA-improving cr at 1.6, off cortes
no labs today
BPs increasing trend , off ACEI and thiazide,
started on low dose Amlodipine per primary on 07/12-titrate dose as needed
abx per primary team for cellulitis
dc planning
BMP in 1week post d/c and f/u with PCP
f/u Nephro if needed
-
-
Date of Service: July 13, 2024
CC / HPI / ROS
-
Chief Complaint:
DENA
History of Present Illness:
DENA/Cr down to 1.6, no labs today
acidosis resolved
WBC improving
K normal
cortes in place for DENA
Review of Systems:
no CP/SOB
no n/v
off cortes and rectal tube
Labs
-
Labs:
WBC 12.9 10^3/uL (4.8-10.8) H 07/12/24 06:10
RBC 3.30 10^6/uL (4.20-5.40) L 07/12/24 06:10
Hgb 10.1 g/dL (12.0-16.0) L 07/12/24 06:10
Hct 31.0 % (37.0-47.0) L 07/12/24 06:10
Plt Count 286 10^3/uL (130-400) 07/12/24 06:10
Sodium 136 mmol/L (135-145) 07/12/24 06:10
Potassium 4.1 mmol/L (3.5-5.1) 07/12/24 06:10
Chloride 109 mmol/L (98-107) H 07/12/24 06:10
Carbon Dioxide 22 mmol/L (22-30) 07/12/24 06:10
BUN 34 mg/dl (7-17) H 07/12/24 06:10
Creatinine 1.6 mg/dL (0.6-1.0) H 07/12/24 06:10
eGFR 34.48 07/12/24 06:10
Glucose 94 mg/dl (70-99) 07/12/24 06:10
Calcium 7.3 mg/dl (8.4-10.2) L 07/12/24 06:10
Phosphorus 3.9 mg/dl (2.5-4.5) 07/06/24 05:57
Fdq-X-Mtaxidctwnh Pept 7420 pg/ml 07/04/24 16:11
Albumin 1.9 g/dl (3.5-5.0) L 07/09/24 04:39
Physical Exam
-
Vital Signs:
Vital Signs
Temp Pulse Resp BP Pulse Ox
99.5 F 82 13 155/66 96
07/13/24 07:30 07/13/24 08:52 07/13/24 07:30 07/13/24 08:52 07/13/24 11:07
Cardiovascular:: Regular rate and rhythm
Respiratory:: Bilateral: CTA
Lung Excursion:: Normal
Abdomen:: Nontender and Soft
Extremity Edema:: None: Bilateral:
Cortes Catheter: No
--- NOTE | 2024-07-13 15:07 | CM ---
Addendum entered by Kristy Condon RN 07/13/24 15:24:
TT to chief medical director Dr. Gardiner with [id number] information.
Original Note:
TC cam Isaac from [facility] re skilled authorizations.
They are offering a Peer to Peer review
Deadline for peer to peer is 10:30 am 07/14/24 (they are open until 8pm this evening)
Phone number for peer to peer is [phone] option 5
Please provide patients name, date of and .
[2024-07-13 15:20] VITALS: BP 142/76
[2024-07-13] MEDS: ROXICODONE 5 MG PO (16:02)
--- NOTE | 2024-07-13 16:44 | W.PN.HOSP.TC ---
Today's Communication/Plan
-
Assessment / Plan
Assessment / Plan
Ms. Dexter 69-year-old female with a medical history of right parietal stroke and hypertension who presents with weakness. She lives alone and was found in her home by family covered in urine and feces, unclear how long she had sitting there. She
had multiple skin excoriations in groin area and under her breasts. She was found to have severe acute renal failure with a creatinine of 16 and sepsis secondary to urinary tract infection. She was treated with aggressive IV fluids and
broad-spectrum antibiotics which have now been discontinued. Her renal function appears to be close to baseline now. Her home lisinopril-HCTZ have been discontinued and she should not restart these medications. She has a Khoury catheter in place
due to decubitus ulcers, but is okay for voiding trial from a renal perspective. She continues to receive local wound care. At the time of admission she was found to be in A-fib with RVR. Her heart rate was controlled after starting amiodarone.
She has been started on anticoagulation with Eliquis. She had intermittent diarrhea, however C. difficile and norovirus testing are both negative. She was found to have moderate protein calorie malnutrition and dietary supplements were started.
She was evaluated by PT/OT who worked with her during this hospitalization and recommended SNF at time of discharge for ongoing rehabilitation. She has dramatically clinically improved during this hospitalization and is hemodynamically stable at
the time of hospital discharge. She will be discharged to SNF with prescriptions for amiodarone 200 mg p.o. daily and Eliquis 5 mg p.o. twice daily. She will need outpatient follow-up with cardiology for ongoing management of her A-fib. She will
also need to follow-up with her PCP after hospital discharge.
Gen-AAOx3, NAD
HEENT-NC, AT, anicteric, clear oral mm
Neck-supple
CV-reg, no M, +S1/S2
Lungs-clear B/L
Abd-soft, NT, ND
Musculoskeletal-no edema, no deformity
Skin-warm and dry, bilateral ischial wounds
Neuro-mild dysarthria, no tremor
Psych-calm, cooperative
Anticipated Discharge: Within 24 hours
Subjective/Interval History
-
Date of Service: July 13, 2024
Patient seen and examined at bedside. No complaints. Awaiting SNF placement.
Objective Data
-
Vital Signs:
Vital Signs
Temp Pulse Resp BP Pulse Ox
99.4 F 85 16 142/76 94
07/13/24 15:20 07/13/24 15:20 07/13/24 15:20 07/13/24 15:20 07/13/24 16:43
I&O
07/12/24 07/13/24 07/14/24
06:59 06:59 06:59
Intake Total 980 / 980 1320 / 1320
Output Total 1205 / 1205
Balance -225 / -225 1320 / 1320
Review of Systems
-
History Source: Patient
All other systems: Reviewed and negative
Physical Exam
-
General: No Apparent Distress
[2024-07-13 22:56] VITALS: BP 140/70
[2024-07-14] MEDS: ROXICODONE 2.5 MG PO ×2 (01:24→12:16)
[2024-07-14 06:00] VITALS: BMI 36.7
[2024-07-14 07:38] LABS: Blood Urea Nitrogen 26 mg/dl (7-17); Calcium 7.3 mg/dl (8.4-10.2); Carbon Dioxide 23 mmol/L (22-30); Chloride 106 mmol/L (98-107); Estimated Creatinine Clearance 39 ml/min; Glucose 97 mg/dl (70-99); Potassium 4.7 mmol/L (3.5-5.1); Sodium 134 mmol/L (135-145); eGFR 37.26
[2024-07-14 07:58] VITALS: BP 130/75
[2024-07-14] MEDS: PACERONE 200 MG PO (08:16)
[2024-07-14] MEDS: NORVASC 2.5 MG PO (08:16)
[2024-07-14] MEDS: VISBIOME 1 CAP PO (08:16)
[2024-07-14] MEDS: MYCOSTATIN ORAL SUSPENSION 5 ML PO ×2 (08:16→12:12)
[2024-07-14] MEDS: ELIQUIS 5 MG PO (08:16)
[2024-07-14] MEDS: ROXICODONE 5 MG PO ×2 (08:17→15:14)
[2024-07-14 09:23] VITALS: BP 138/79; PULSE 87; O2SAT 97
--- NOTE | 2024-07-14 10:09 | CM ---
Addendum entered by Kristy Condon RN 07/14/24 10:46:
Patient's daughter Asmita updated on approval for SNF.
Addendum entered by Kristy Condon RN 07/14/24 10:09:
PLAN: [facility], once auth approved
Report #: [id number]
Fax #: [phone]
transportation forms on chart
Original Note:
Reviewed the chart notes and spoke with the patient at the bedside. IMM reviewed.
--- NOTE | 2024-07-14 10:39 | CM ---
TC from [facility] from [facility].
Skilled LOC approved on Peer to Peer
Ref# [id number] (auth # not generated yet)
Approved 07/14/24 with LCD/NRD 07/16/22
Updates to Chaya Goddard Fa# [phone]
--- NOTE | 2024-07-14 12:04 | W.PN.NEPH.PH ---
Today's Communication / Plan
-
dc
Assessment/Plan
-
Assessment
DENA
Hyperkalemia
Metabolic acidosis
Azotemia
Lactic acidosis
Hypotension
Atrial fibrillation
Mental status change
History of stroke
Elevated LFTs
Elevated CPK
Plan
dc planning
BMP in 1week post d/c and f/u with PCP
-
-
Date of Service: July 14, 2024
CC / HPI / ROS
-
Chief Complaint:
DENA
History of Present Illness:
DENA/Cr down to 1.5
Na 134
acidosis resolved
WBC improving
K normal
Review of Systems:
no CP/SOB
no n/v
off cortes and rectal tube
Labs
-
Labs:
WBC 12.9 10^3/uL (4.8-10.8) H 07/12/24 06:10
RBC 3.30 10^6/uL (4.20-5.40) L 07/12/24 06:10
Hgb 10.1 g/dL (12.0-16.0) L 07/12/24 06:10
Hct 31.0 % (37.0-47.0) L 07/12/24 06:10
Plt Count 286 10^3/uL (130-400) 07/12/24 06:10
Sodium 134 mmol/L (135-145) L 07/14/24 06:11
Potassium 4.7 mmol/L (3.5-5.1) 07/14/24 06:11
Chloride 106 mmol/L (98-107) 07/14/24 06:11
Carbon Dioxide 23 mmol/L (22-30) 07/14/24 06:11
BUN 26 mg/dl (7-17) H 07/14/24 06:11
Creatinine 1.5 mg/dL (0.6-1.0) H 07/14/24 06:11
eGFR 37.26 07/14/24 06:11
Glucose 97 mg/dl (70-99) 07/14/24 06:11
Calcium 7.3 mg/dl (8.4-10.2) L 07/14/24 06:11
Phosphorus 3.9 mg/dl (2.5-4.5) 07/06/24 05:57
Uzl-V-Zyrcfubkbjw Pept 7420 pg/ml 07/04/24 16:11
Albumin 1.9 g/dl (3.5-5.0) L 07/09/24 04:39
Physical Exam
-
Vital Signs:
Vital Signs
Temp Pulse Resp BP Pulse Ox
98.4 F 82 20 130/75 95
07/14/24 07:58 07/14/24 08:16 07/14/24 07:58 07/14/24 08:16 07/14/24 07:58
Cardiovascular:: Regular rate and rhythm
Respiratory:: Bilateral: CTA
Lung Excursion:: Normal
Abdomen:: Nontender and Soft
Bowel Sounds:: Normal
Extremity Edema:: +1: Bilateral:
[2024-07-14 15:39] VITALS: BP 127/68
--- NOTE | 2024-07-14 16:21 | PTCARENOTE ---
Patient discharged to [facility], transported by [facility]. No IV or tele pack on patient. This RN called report to facility, per facility, patient cannot have FMS at facility and FMS must be removed prior to transport. FMS removed by this
RN with assistance of tech, patient with large loose incontinent BM immediately after FMS removal. Patient changed, wound care on B/L buttocks redressed. Khoury in place for transport. Belongings gathered in room, son at bedside to confirm no
belongings left behind. 5 mg prn oxycodone given prior to transport, paper script for oxycodone in discharge packet per MD.
== END 2024-07-14 16:36 | DRG 871 ==
LOC: 2 NORTH 18:56
PROVIDERS: Internal Medicine; Nurse Practitioner Family; Physician Assistant Medical; Student in an Organized Health Care Education/Training Program; ADMITTING PHYSICIAN Internal Medicine; ATTENDING PHYSICIAN Internal Medicine; CONSULT PHYSICIAN Internal Medicine Infectious Disease; EMERGENCY PHYSICIAN Student in an Organized Health Care Education/Training Program; FAMILY PHYSICIAN Family Medicine; OTHER PHYSICIAN Internal Medicine; OTHER PHYSICIAN Specialist
DX: A41.9 Sepsis, unspecified organism (principal); G92.8 Other toxic encephalopathy; R65.21 Severe sepsis with septic shock; N17.9 Acute kidney failure, unspecified; N39.0 Urinary tract infection, site not specified; E87.20 Acidosis, unspecified; M62.82 Rhabdomyolysis; E44.0 Moderate protein-calorie malnutrition; L03.90 Cellulitis, unspecified; B37.0 Candidal stomatitis; E87.5 Hyperkalemia; I48.91 Unspecified atrial fibrillation; Z79.82 Long term (current) use of aspirin; I12.9 Hypertensive chronic kidney disease with stage 1 through stage 4 chronic kidney disease, or unspecified chronic kidney disease; N18.31 Chronic kidney disease, stage 3a; Z79.01 Long term (current) use of anticoagulants; Z68.36 Body mass index [BMI] 36.0-36.9, adult
CPT/HCPCS: 70450; 71045; 74176; 80048; 80053; 81003; 81015; 81099; 82140; 82550; 82570; 82962; 83605; 83735; 83880; 84100; 84132; 84300; 85014; 85018; 85025; 85027; 85730; 87040; 87045; 87046; 87070; 87071; 87077; 87086; 87147; 87186; 87205; 87324; 87328; 87329; 87427; 87449; 87502; 87798; 87811; 92526; 92610; 93005; 93306; 93970; 96361; 96365; 96375; 97163; 97167; 97530; 97535; 99285